=== PATIENT | male | born 1950 | race Caucasian/White ===

== ENCOUNTER 2016-06-26 06:43 | Inpatient (IN) | payer OTHER ==
[2016-06-04 13:26] VITALS: BMI 34.0
--- NOTE | 2016-06-04 13:50 | PAT Medication Instructions ---
Service Date Jun 04, 2016. Current Home Medication List Aspirin (Aspirin Ec), 81 MG PO M.W.F Atorvastatin (Lipitor), 10 MG PO QPM Fish Oil (Yolyn-3), 1 CAP PO QAM Hydrocodone/Acetaminophen 5MG/325MG ([place] 5MG/325MG), 1 TABLET PO QID PRN for Pain Sertraline (Zoloft), 100 MG PO QPM Medication Instructions For Your Scheduled Surgery - Hold the following medications 2 weeks prior to surgery: Fish Oil (Yolyn-3), 1 CAP PO QAM - Take the following medications the morning of surgery with a sip of water OTHERWISE NOTHING TO EAT OR DRINK AFTER MIDNIGHT: Aspirin (Aspirin Ec), 81 MG PO M.W.F Hydrocodone/Acetaminophen 5MG/325MG ([place] 5MG/325MG), 1 TABLET PO QID PRN for Pain (may take up to 4 hours prior to surgery if needed) - Take the following medications as scheduled the night before surgery: Sertraline (Zoloft), 100 MG PO QPM Atorvastatin (Lipitor), 10 MG PO QPM If you have any questions please call us at [phone] (Violet Gonsalez PA-C) or [phone] or [phone]
--- NOTE | 2016-06-04 14:14 | DIAGNOSTIC IMAGING REPORT ---
CHEST 2 VIEWS ROUTINE CLINICAL HISTORY: Preoperative evaluation COMPARISON STUDY: No previous studies for comparison. FINDINGS: Lung volumes are normal. There is no consolidation. Pulmonary vascularity is normal. No pneumothorax or pleural effusion is present. There is borderline cardiomegaly. IMPRESSION: 1. No acute cardiopulmonary findings. 2. Borderline cardiomegaly. Electronically signed by: Сергей Ortega M.D. 06/04/2016 2:12 PM
[2016-06-04 15:06] LABS: PROTHROMBIN TIME (PATIENT) 10.2 SECONDS (9.0-12.0)
[2016-06-04 15:07] LABS: URINE APPEARANCE CLEAR (CLEAR); URINE BILIRUBIN NEG (NEG); URINE COLOR YELLOW; URINE NITRITE NEG (NEG); URINE PH 5.5 (4.5-7.5); UROBILINOGEN NEG (NEG); ZZUR CULT IF INDIC CLEAN CATCH NO
[2016-06-04 15:19] LABS: BUN/CREATININE RATIO 8.3 (10-20); CALCIUM 8.8 mg/dl (8.5-10.1); CREATININE 0.78 mg/dl (0.60-1.40); POTASSIUM 3.6 mmol/L (3.5-5.1)
[2016-06-04 15:24] LABS: MANUAL MICROSCOPIC REQUIRED? NO; REVIEW REQ? NO
[2016-06-04 15:35] LABS: BASO % 0.5 %; BASO ABS # 0.03 K/uL (0-0.2); COMPLETE YES; IG% 0.8 %; LYMPH % 21.5 %; LYMPH ABS # 1.31 K/uL (1.2-3.4); MEAN CORPUSCULAR HEMOGLOBIN 33.1 pg (25-34); MEAN CORPUSCULAR HGB CONC 35.6 g/dl (32-36); MEAN PLATELET VOLUME 8.8 fL (7.4-10.4); MONO % 6.6 %; NEUT % 68.6 %; PLATELET COUNT 256 K/uL (130-400); RED BLOOD COUNT 4.41 M/uL (4.7-6.1); WHITE BLOOD COUNT 6.09 K/uL (4.8-10.8)
[2016-06-05 05:55] LABS: ESTIMATED AVERAGE GLUCOSE 105 mg/dl; HA1C FLAG Normal (Normal)
--- NOTE | 2016-06-25 13:47 | HISTORY & PHYSICAL EXAMINATION ---
DATE OF ADMISSION: 06/26/2016 CHIEF COMPLAINT: Chronic right knee pain. HISTORY OF PRESENT ILLNESS: A 66-year-old male, patient of Dr. Amin'sylvia complaining of chronic right knee pain, longstanding, progressively getting worse. The patient has been diagnosed with end-stage osteoarthritis per clinical and radiographic exams. He has failed conservative treatment including anti-inflammatories, intraarticular injections, arthroscopic cleanout as well as the use of a brace and crutches. He has increased pain with weightbearing activities and his pain does interfere with his activities of daily living. PAST MEDICAL HISTORY: Hypercholesterolemia, recent cold, anxiety, osteoarthritis, and obesity. SOCIAL HISTORY: He is half pack per day smoker, social drinker. REVIEW OF SYSTEMS: The patient complains of chronic right knee pain, otherwise denies any shortness of breath, chest pain, nausea, vomiting or joint complaints. FAMILY HISTORY: Noncontributory. PAST SURGICAL HISTORY: Arthroscopic knee surgery on the right. MEDICATIONS: Zoloft 100 mg daily, Lipitor 10 mg daily, fish oil daily, aspirin 81 mg daily, hydrocodone 5/325 as needed daily. ALLERGIES: No known drug allergies. PHYSICAL EXAMINATION: GENERAL: Well-developed, well-nourished 66-year-old male in no acute distress. He is alert and oriented x3 and pleasant. HEAD, EYES, EARS, NOSE, AND THROAT: Normocephalic, atraumatic. Extraocular motions are intact. Pupils are equal and reactive to light. HEART: Regular rate and rhythm, no murmurs. LUNGS: Clear. ABDOMEN: Soft and nontender. Bowel sounds are present. EXTREMITIES: Right knee reveals limited range of motion of 0-125 degrees with a varus deformity. The patient has medial joint line tenderness and mild effusion. He has crepitation with passive range of motion. His ligaments are stable. He has 5/5 strength. Neurologically and neurovascularly he is intact in his right lower extremity. DIAGNOSES: 1. Right knee end-stage osteoarthritis. 2. Hypercholesterolemia. 3. Anxiety 4. Osteoarthritis. 5. Obesity. PLAN: The patient was advised of his diagnosis. Indications, risks, benefits, and postop course have all been reviewed. The patient wishes to proceed with a right total knee arthroplasty. Necessary consent forms, preoperative testing and clearances will be obtained.
[~2016-06-26] VITALS: Ht 177.8 cm; Wt 108.5 kg
[2016-06-26] VITALS (8 sets, daily range): BP systolic 108–133; BP diastolic 69–80; PULSE 59–84; TEMP 36.2–37.1; O2SAT 94–98; Ht 177.8 cm; Wt 108.5 kg
[~2016-06-26 06:43] MED LIST: ACETAMINOPHEN 500 MG TAB PO SCH; ASPI81TA28 PO; ATOR10TA88 PO; BUPIVACAINE 0.5 % 5 MG/1 ML PF 10ML VIAL ONE; CEFAZOLIN 2000 MG/60 ML D5W 60 ML IV SCH; CeleBREX 200 MG CAP PO SCH; DEXAMETHASONE 4 MG TAB PO SCH; FAMOTIDINE 20 MG TAB PO SCH; GABAPENTIN 300 MG CAP PO SCH; HYDR-5688 PO; LACTATED RINGER'S 1000ML 1,000 ML IV SCH; LACTATED RINGER'S 1000ML 500 ML IV ONE; LACTATED RINGER'S 1000ML IV SCH; METOCLOPRAMIDE HCL 10 MG TAB PO SCH; OMEG10007 PO; ROPIVACAINE 5MG/ML 30 ML 150 MG, BUPIVACAINE/EPINEPHR 0.5% MPF 30 ML, KETOROLAC TROMETH... INFIL SCH; SERT-234 PO
[2016-06-26] MEDS ORDERED: ORTHO JOINT ANESTHETIC ONE (06:54)
--- NOTE | 2016-06-26 07:11 | History & Physical Bridge Note ---
H&P Re-Evaluation Bridge Note: I have examined the patient, reviewed the History & Physical and in the interval since the performance of the History & Physical I have noted the following changes of clinical significance: No changes noted
[2016-06-26] MEDS ORDERED: MIDAZOLAM HCL 1 MG/ML 2ML VIAL ONE (07:12)
[2016-06-26] MEDS ORDERED: FENTANYL CITRATE INJ 50 MCG/1 ML 2 ML VIAL ONE (07:12)
[2016-06-26] MEDS: TRANEXAMIC ACID INJ 1,000 MG in SODIUM CHLORIDE 0.9% 100ML 100 ML IV SCH ×2 (07:51→13:29)
[2016-06-26] MEDS ORDERED: PROPOFOL IV EMULSION 10 MG/ML 20 ML VIAL IV ONE ×4 (08:51→10:24)
[2016-06-26] MEDS ORDERED: PHENYLEPHRINE 100MCG/ML 5ML SYR ONE (09:07)
[2016-06-26] MEDS ORDERED: EpHEDrine SULFATE INJ 50 MG/ML AMP ONE (09:16)
[2016-06-26] MEDS ORDERED: ATROPINE SULFATE 0.1 MG/ML 5ML SYR IV PRN (09:30)
[2016-06-26] MEDS ORDERED: ONDANSETRON INJ 2 MG/ML 2 ML VIAL IV PRN ×2 (09:30→11:00)
[2016-06-26] MEDS ORDERED: FENTANYL CITRATE INJ 50 MCG/1 ML 2 ML VIAL IV PRN (09:30)
[2016-06-26] MEDS ORDERED: EpHEDrine SULFATE INJ 50 MG/ML AMP IV PRN (09:30)
--- NOTE | 2016-06-26 10:29 | [facility] Operative Report ---
Operative Report Operative Date Jun 26, 2016. Pre-Operative Diagnosis Right Knee, Degenerative Joint Disease,avn mfc Post-Operative Diagnosis same Procedure(s) Performed right tka,lat release Surgeon Dr. Bj Amin Cap Jewel Plate Assembler Surgeon(s) Moise Keyes PA-C Estimated Blood Loss 5ml Findings tricompartmental djd varus grade 4 tricompartmental Specimens A.) Right Knee Bone and Tissue Fragments Drains 2 HV Anesthesia [facility] Disposition Recovery Room / PACU Indications end stage djd avn collapse [facility] I attest to the content of the Intraoperative Record and any orders documented therein. Any exceptions are noted below.
[2016-06-26] MEDS ORDERED: BACITRACIN 50000 UNIT VIAL IR ONE (10:32)
[2016-06-26] MEDS ORDERED: POVIDONE-IODINE OP SOLN 30 ML BTL TOP ONE (10:32)
[2016-06-26] MEDS ORDERED: MAGNESIUM HYDROXIDE SUSP 30 ML UDC PO PRN (11:00)
[2016-06-26] MEDS ORDERED: MoRPHine SULFATE 2 MG/ML CARP IV PRN (11:00)
[2016-06-26] MEDS ORDERED: ZOLPIDEM TARTRATE 5 MG TAB PO PRN (11:00)
[2016-06-26] MEDS ORDERED: DiphenhydrAMINE HCL 50 MG/ML VIAL IV PRN (11:00)
[2016-06-26] MEDS ORDERED: BISACODYL 10 MG SUPP PR PRN (11:00)
[2016-06-26] MEDS ORDERED: ALUMINUM/MAGNESIUM/SIMETH (MAALOX MAX) 30 ML UDC PO PRN (11:00)
--- NOTE | 2016-06-26 11:30 | DIAGNOSTIC IMAGING REPORT ---
RIGHT KNEE 1 OR 2 VIEWS ROUTINE CLINICAL HISTORY: Postoperative evaluation COMPARISON: Right knee fluoroscopic images September 27, 2015 FINDINGS: Alignment of the right knee arthroplasty is anatomic. There is no fracture or unexpected radiopaque foreign body. Drains and skin tanisha are present. IMPRESSION: Expected findings following total right knee arthroplasty. Electronically signed by: Сергей Ortega M.D. 06/26/2016 11:28 AM Dictated Date/Time: 06/26/2016 11:26 AM
--- NOTE | 2016-06-26 12:06 | Anesthesiology Progress Note ---
Anesthesia Post Op Note Date & Time Jun 26, 2016 at 12:06 Vital Signs Pain Intensity: 0 Vital Signs Past 12 Hours Date Time Temp Pulse Resp B/P Pulse Ox O2 Delivery O2 Flow Rate FiO2 06/26/16 11:45 36.3 57 17 104/66 98 Nasal Cannula 2 06/26/16 11:14 60 19 98 06/26/16 11:14 62 19 06/26/16 11:13 103/70 06/26/16 11:09 60 20 97 06/26/16 11:09 61 20 06/26/16 11:08 110/68 06/26/16 11:04 62 17 98 06/26/16 11:04 61 17 06/26/16 11:03 103/75 06/26/16 10:59 62 12 100 06/26/16 10:59 62 12 06/26/16 10:58 110/68 06/26/16 10:54 71 16 98 06/26/16 10:54 71 16 06/26/16 10:54 36.3 66 18 103/65 94 Room Air 06/26/16 07:34 36.2 84 20 133/80 94 Room Air Notes Mental Status: alert / awake / arousable, participated in evaluation Pt Amnestic to Procedure: Yes Nausea / Vomiting: adequately controlled Pain: adequately controlled Airway Patency, RR, SpO2: stable & adequate BP & HR: stable & adequate Hydration State: stable & adequate Neuraxial Anesthesia: was administered, sensory block is resolving Anesthetic Complications: no major complications apparent
[2016-06-26] MEDS: D5W AND 1/2NSS + 20MEQ KCL 1,000 ML IV SCH ×2 (13:47→23:00)
[2016-06-26] MEDS ORDERED: NURSING VERBAL MED ORDER ONE (15:45)
--- NOTE | 2016-06-26 16:08 | Medical Consult ---
Consultation Date of Consultation: Jun 26, 2016. Attending Physician: Bj Amin M.D. Reason for Consultation: Medical management History of Present Illness Patient is a pleasant 66 y/o male, with PMHx of hyperlipidemia, osteoarthritis, and anxiety, s/p right TKA by Dr. Amin on 06/26. Per family, everything went well with surgery, without any complications. Currently pain is controlled at a 0/10. Denies any passing gas or BM postop. Tolerated lunch well. Patient denies any fever, chills, sweats, lightheadedness, dizziness, vision changes, CP, palpitations, edema, SOB, wheezing, cough, abdominal pain, nausea, vomiting, diarrhea, urinary symptoms, melena, numbness/tingling, weakness, muscle/joint pain, anxiety/depression, active bleeding, or new skin discoloration/changes. Past Medical/Surgical History 1. Hyperlipidemia 2. Anxiety 3. Tobacco abuse 4. Osteoarthritis Social History Smoking Status: Current Every Day Smoker (~1/2 pack per day) Smokeless Tobacco Use: Yes Marital Status: Housing Status: lives with family Allergies Coded Allergies: No Known Allergies (Unverified , 06/04/16) Home Medications Reported Home Medications Medications Dose Route/Sig Max Daily Dose Days Date Category Dose Instructions [place] 5MG/325MG (Acetaminophen/Hydrocodone Bitart) Tab 1 Tablet PO QID PRN 06/04/16 Reported PRN PAIN Aspirin Ec (Aspirin) 81 Mg Tab 81 Mg PO M.W.F 09/25/15 Reported [place]-3 (Fish Oil) 1 Ea Cap 1 Cap PO QAM 09/25/15 Reported Zoloft (Sertraline HCl) 100 Mg Tab 100 Mg PO QPM 09/25/15 Reported Lipitor (Atorvastatin Calcium) 10 Mg Tab 10 Mg PO QPM 09/25/15 Reported Current Inpatient Medications Current Inpatient Medications Medications (Trade) Dose Ordered Sig/Carlos Route Start Time Stop Time Status Last Admin Dose Admin Lactated Ringer's 1,000 ml @ 15 mls/hr Q24H IV 06/26/16 06:00 06/27/16 05:59 06/26/16 07:49 15 MLS/HR Lactated Ringer's 1,000 ml @ 60 mls/hr [id number] IV 06/26/16 06:00 06/26/16 22:39 06/26/16 07:49 60 MLS/HR Cefazolin Sodium (Ancef 2000mg/60 ml D5W) 60 ml @ 100 mls/hr PREOP IV 06/26/16 06:00 06/26/16 18:00 06/26/16 08:37 100 MLS/HR Acetaminophen (Tylenol Tab) 1,000 mg PREOP PO 06/26/16 06:00 06/26/16 18:00 06/26/16 07:51 1,000 MG Celecoxib (CeleBREX CAP) 200 mg PREOP PO 06/26/16 06:00 06/26/16 18:00 06/26/16 07:52 200 MG Dexamethasone (Decadron Tab) 8 mg PREOP PO 06/26/16 06:00 06/26/16 18:00 06/26/16 07:50 8 MG Famotidine (Pepcid Tab) 20 mg PREOP PO 06/26/16 06:00 06/26/16 18:00 06/26/16 07:50 20 MG Gabapentin (Neurontin Cap) 300 mg PREOP PO 06/26/16 06:00 06/26/16 18:00 06/26/16 07:50 300 MG Metoclopramide HCl 10 mg 10 mg PREOP PO 06/26/16 06:00 06/26/16 18:00 06/26/16 07:51 10 MG Tranexamic Acid/ Sodium Chloride (Cyklokapron Inj/ Nss 100ml) 110 ml @ 660 mls/hr TODAY@06,0630 IV 06/26/16 06:00 06/26/16 18:00 06/26/16 07:51 660 MLS/HR Atorvastatin Calcium (Lipitor Tab) 10 mg QPM PO 06/26/16 21:00 07/26/16 20:59 Sertraline HCl (Zoloft Tab) 100 mg QPM PO 06/26/16 21:00 07/26/16 20:59 Morphine Sulfate PAIN SCALE 0-3 2MG ... Q4HWA PRN IV 06/26/16 11:00 07/10/16 10:59 Potassium Chloride/Dextrose/ Sod Cl 1,000 ml @ 100 mls/hr Q10H IV 06/26/16 14:00 06/27/16 10:54 06/26/16 13:47 100 MLS/HR Cefazolin Sodium/ Dextrose (Ancef Iv/D5 50ml) 60 ml @ 100 mls/hr Q8H IV 06/26/16 16:00 06/27/16 00:35 Ketorolac Tromethamine (Toradol Inj) 15 mg Q6H IV. 06/26/16 18:00 06/27/16 17:59 Oxycodone HCl (Roxicodone Immediate Rel Tab) 1 TABLET FOR PAIN RATING... Q4H PRN PO 06/26/16 11:00 07/10/16 10:59 Oxycodone HCl (Oxycontin Tab) 10 mg Q12 PO 06/26/16 21:00 07/10/16 20:59 Acetaminophen (Tylenol Tab) 1,000 mg Q8H PO 06/26/16 22:00 07/26/16 21:59 Magnesium Hydroxide (Milk Of Magnesia Susp) 30 ml Q6H PRN PO 06/26/16 11:00 07/26/16 10:59 Bisacodyl (Dulcolax Supp) 10 mg DAILY PRN [place] 06/26/16 11:00 07/26/16 10:59 Senna (Senokot Tab) 17.2 mg HS PO 06/26/16 21:00 07/26/16 20:59 Docusate Sodium (coLACE CAP) 100 mg BID PO 06/26/16 21:00 07/26/16 20:59 Diphenhydramine HCl (Benadryl Inj) 25 mg Q8H PRN IV 06/26/16 11:00 07/26/16 10:59 Al Hydrox/Mg Hydrox/Simethicone (Maalox Max Susp) 15 ml Q4H PRN PO 06/26/16 11:00 07/26/16 10:59 Zolpidem Tartrate (Ambien Tab) 5 mg HSZ PRN PO 06/26/16 11:00 07/26/16 10:59 Multivitamins (Multivitamin Tab) 1 tab QAM PO 06/27/16 09:00 07/27/16 08:59 Ondansetron HCl (Zofran Inj) 4 mg Q6H PRN IV 06/26/16 11:00 07/26/16 10:59 Ferrous Gluconate (Ferrous Gluconate Tab) 324 mg TIDM PO 06/26/16 17:45 07/26/16 17:44 Pantoprazole Sodium (Protonix Tab) 40 mg QAM PO 06/27/16 09:00 07/27/16 08:59 Aspirin (Ecotrin Tab) 81 mg BID PO 06/26/16 21:00 07/26/16 20:59 Influenza Virus Vaccine Quadrival (Flu Vaccine) 0.5 ml ONCE ONCE IM. 06/26/16 20:00 06/26/16 20:01 Miscellaneous Information (Nursing Verbal Med Order) 1 ea ONE ONCE N/A 06/26/16 15:45 06/26/16 15:46 UNV Physical Exam Date Time Temp Pulse Resp B/P Pulse Ox O2 Delivery O2 Flow Rate FiO2 06/26/16 15:39 37.1 70 18 116/74 98 Nasal Cannula 2.0 06/26/16 15:15 Nasal Cannula 2.0 06/26/16 14:37 78 14 112/72 94 Nasal Cannula 2.0 06/26/16 13:40 61 16 123/78 96 Nasal Cannula 2.0 06/26/16 13:10 61 16 114/71 96 Nasal Cannula 2.0 06/26/16 12:40 Nasal Cannula 2.0 06/26/16 12:40 36.7 59 16 108/69 96 Nasal Cannula 2.0 06/26/16 12:40 Nasal Cannula 2.0 06/26/16 12:23 106/63 06/26/16 12:21 112/65 06/26/16 12:20 61 21 98 06/26/16 12:20 61 21 06/26/16 12:15 59 15 97 06/26/16 12:15 61 15 06/26/16 12:13 112/66 06/26/16 12:10 60 16 98 06/26/16 12:10 60 16 06/26/16 12:08 111/69 06/26/16 12:05 60 22 98 06/26/16 12:05 60 22 06/26/16 12:03 111/68 06/26/16 12:00 58 14 97 06/26/16 12:00 58 14 06/26/16 11:58 111/69 06/26/16 11:55 59 18 06/26/16 11:55 58 18 98 06/26/16 11:50 60 22 06/26/16 11:50 60 22 98 06/26/16 11:48 104/66 06/26/16 11:45 59 16 98 06/26/16 11:45 36.3 57 17 104/66 98 Nasal Cannula 2 06/26/16 11:45 59 16 06/26/16 11:43 111/70 06/26/16 11:40 60 16 98 06/26/16 11:40 60 16 06/26/16 11:39 97/63 06/26/16 11:35 59 22 06/26/16 11:35 57 22 99 06/26/16 11:34 110/69 06/26/16 11:30 56 12 06/26/16 11:30 55 12 98 06/26/16 11:28 111/70 06/26/16 11:25 60 16 98 06/26/16 11:25 63 16 06/26/16 11:23 95/59 06/26/16 11:20 63 15 06/26/16 11:20 55 15 97 06/26/16 11:18 100/69 06/26/16 11:15 71 18 06/26/16 11:15 69 18 99 06/26/16 11:14 60 19 98 06/26/16 11:14 62 19 06/26/16 11:13 103/70 06/26/16 11:09 60 20 97 06/26/16 11:09 61 20 06/26/16 11:08 110/68 06/26/16 11:04 62 17 98 06/26/16 11:04 61 17 06/26/16 11:03 103/75 06/26/16 10:59 62 12 100 06/26/16 10:59 62 12 06/26/16 10:58 110/68 06/26/16 10:54 71 16 98 06/26/16 10:54 71 16 06/26/16 10:54 36.3 66 18 103/65 94 Room Air 06/26/16 07:34 36.2 84 20 133/80 94 Room Air General Appearance: no apparent distress, + obese Head: normocephalic, atraumatic Eyes: normal inspection, PERRL ENT: hearing grossly normal Neck: supple Respiratory/Chest: lungs clear, normal breath sounds, no respiratory distress, no accessory muscle use Cardiovascular: regular rate, rhythm, normal peripheral pulses Abdomen/GI: normal bowel sounds, non tender, soft Back: normal inspection Extremities/Musculoskelatal: no calf tenderness, no pedal edema, + pertinent finding (TEDs on ) Neurologic/Psych: alert, normal mood/affect, oriented x 3 Skin: normal color, warm/dry, no rash Laboratory Results Last 24 Hours Test 06/26/16 06:56 Hepatitis C Antibody Screen NEG Assessment & Plan 66 y/o male, with PMHx of hyperlipidemia, osteoarthritis, and anxiety, s/p right TKA by Dr. Amin on 06/26 - Pain management, DVT prophylaxis, and PT/OT as per primary team - Follow CBC and PRP Hyperlipidemia: - Continue Lipitor 10 mg PO QPM Anxiety: - Continue Zoloft 100 mg PO QPM Tobacco Abuse: - Smoke ~1/2 pack per day - Chews tobacco occasionally - Nicotine patch GI Prophylaxis: - Pantoprazole 40 mg - Maalox PRN - IV Zofran PRN - Colace and/or Milk of Mag PRN DVT prophylaxis: - As per primary team Dispo: - Discharge as per primary team. Thank you for this consultation. We will continue to follow throughout hospital stay.
[2016-06-26] MEDS: CEFAZOLIN IV 2,000 MG in DEXTROSE 5% 50ML 50 ML IV SCH ×2 (16:38→22:59)
[2016-06-26] MEDS: NICOTINE 21 MG/24 HR TDSY EXT SCH (16:39)
[2016-06-26] MEDS: OXYCODONE HCL IR 5 MG TAB (IMMEDIATE RELEASE) PO PRN (16:44)
[2016-06-26] MEDS: FERROUS GLUCONATE 324 MG TAB PO SCH (18:14)
[2016-06-26] MEDS: KETOROLAC TROMETHAMINE 15 MG/ML VIAL IV. SCH ×2 (18:14→23:00)
[2016-06-26] MEDS ORDERED: INFLUENZA ADMINISTRATION CHARGE ONE (20:00)
[2016-06-26] MEDS ORDERED: INFLUENZA VIRUS QUAD VACCINE 0.5 ML SYR IM. ONE (20:00)
[2016-06-26] MEDS: OXYCODONE HCL 10 MG TABCR (OXYCONTIN) PO SCH (20:28)
[2016-06-26] MEDS: ASPIRIN 81 MG ECTAB PO SCH (20:29)
[2016-06-26] MEDS: SENNA 8.6 MG TAB PO SCH (20:29)
[2016-06-26] MEDS: SERTRALINE HCL 100 MG TAB PO SCH (20:30)
[2016-06-26] MEDS: DOCUSATE SODIUM 100 MG CAP PO SCH (20:30)
[2016-06-26] MEDS: ATORVASTATIN 10 MG TAB PO SCH (20:31)
[2016-06-26] MEDS: ACETAMINOPHEN 500 MG TAB PO SCH (21:31)
--- NOTE | 2016-06-26 23:17 | OPERATIVE REPORT ---
DATE OF OPERATION: 06/26/2016 INDICATION FOR PROCEDURE: The patient is a 66-year-old male with chronic right knee osteoarthritis. He had progressive osteoarthritis in the knee, had an insufficiency fracture of the medial femoral condyle which went on to collapse despite treatment for it. Now, he has significant varus knee [id number] with some instability, the femur with subluxation on the tibia. PREOPERATIVE DIAGNOSIS: Right knee severe end-stage osteoarthritis with either avascular necrosis or insufficiency fracture with collapse of medial femoral condyle. POSTOPERATIVE DIAGNOSIS: Same with tricompartmental degenerative joint disease. PROCEDURE: Right total knee arthroplasty. SURGEON: Dr. Amin. TROUBLE LOCATOR TEST DESK: KELSEY Charles. ANESTHESIA: Spinal sedation, regional block and Orthomix. OPERATIVE PROCEDURE: The patient taken to the operating room, anesthetized under anesthesia as dictated. Pneumatic tourniquet was placed about his right upper thigh. Right lower extremity was prepped and draped in sterile fashion. ChloraPrep was used. Leg was elevated, exsanguinated with Esmarch bandage, pneumatic tourniquet was raised to 300 mmHg. Knee exam demonstrated a varus knee, some moderate pseudolaxity. No particular instability, still had reasonably good range of motion. After the leg was sterilely prepped and draped with ChloraPrep and the tourniquet raised, anterior longitudinal incision was made across the right knee. Skin was incised sharply. Subcutaneous flaps were elevated. He did have very thick prepatellar bursa noted. This was reflected off the fascia. Incision was made into the medial retinaculum, extended up into the mid third of the quadriceps tendon and extended down to tibial tubercle. Intraarticular findings demonstrated that he had completely exposed bone on the medial femoral condyle, had some collapse and flattening of the medial femoral condyle. I completely exposed eburnated bone on the tibial plateau noted. Medial facet of patella was exposed, bone medial facet area only, and the lateral femoral condyle due to subluxation had wear along the medial aspect of the lateral femoral condyle, grade 4 DJD there. I used the Sanchez \T\ Nephew Journey 2.0 total knee arthroplasty system using [employer] MRI templating, sizing the femur for 7, tibia for 6. Knee exposure required infrapatellar fat pad resection, fat pad over the anterior femur resection, lateral synovial bands released. The menisci remnants were resected. The cruciate ligaments were resected. Because of his very tight medial knee, we had to do releases subperiosteally around the medial and posterior medial tibial plateau. With the femur exposed, the custom femoral cutting block was pinned in position and distal femoral cut was made. Then, the 5-in-1 cutting block was placed. The anterior, posterior and chamfer cuts were made. These were made for the size 7 femur. Then, the knee was extended and subperiosteal peel lateral release was performed around the patella. The patella width was measured and width was reproduced with freehand cut technique and a 38 mm patellar component. Drill holes were made and the excess lateral facet was beveled off to prevent any impingement. The tibia was then subluxed. We felt that the custom tibial cutting guide would not work sufficiently, so we used an external tibial cutting guide to make a perpendicular cut to long axis of the tibia matching the posterior slope. I adjusted this appropriately, pinned it in position, made a proximal tibial cut with the oscillating saw. Then, I used a lamina kit planner and all posterior osteophytes were resected. I felt the ligaments were reasonably balanced at this time and then went ahead and subluxed the tibia, placed on the 6 tibial trial, externally rotated in line with the tibial tubercle, pinned in position, and then the punch for the stem was used. Then, the 7 femoral trial was inserted, centered, impacted into position. The notch cutting devices were used, a collet was placed, and 15 poly insert gave balanced ligaments through full range of motion and the patella tracked centrally. The trials were then removed. Then, the anesthetic Orthomix cocktail was injected per protocol. The knee was copiously irrigated with pulsatile lavage antibiotic solution and bacitracin. The final components were cemented was Simplex G cement. The final components were the 7 Oxinium posterior stabilized Sanchez \T\ Nephew Journey 2.0 femur, the 6 tibial baseplate, 15 polyethylene insert posterior stabilized component was used and the 38 patella. While the cement cured, we used the Betadine soak per protocol. The knee was then copiously irrigated with antibiotic solution and bacitracin. Quadriceps tendon and medial retinaculum were closed with interrupted [id number] #1 Vicryl sutures. The knee was taken through full range of motion and the patella tracked centrally and the repair was secure. The subcutaneous tissues were then closed with interrupted 2-0 Polysorb. Skin closed with tanisha. Occlusive dressing was placed. The patient tolerated the procedure well. KELSEY Charles, was my cafe assistant. He functioned as cafe assistant throughout the entire procedure. He assisted in patient positioning, prepping and draping, assisted in leg positioning, soft tissue retraction, instrument management, and performed the fascial, subcutaneous and skin closure, and will participate in postop care of the patient. I attest to the content of the Intraoperative Record and any orders documented therein. Any exceptio ns are noted below.
[2016-06-27] MEDS: OXYCODONE HCL IR 5 MG TAB (IMMEDIATE RELEASE) PO PRN ×5 (02:02→20:42)
[2016-06-27 03:11] VITALS: BP 105/61; PULSE 66; TEMP 37; O2SAT 94
[2016-06-27] MEDS: ACETAMINOPHEN 500 MG TAB PO SCH ×3 (05:20→21:45)
[2016-06-27] MEDS: KETOROLAC TROMETHAMINE 15 MG/ML VIAL IV. SCH ×2 (05:21→12:20)
[2016-06-27 06:04] LABS: HEMATOCRIT 32.7 % (42-52); MEAN CELL VOLUME 91.9 fL (80-100); MEAN CORPUSCULAR HEMOGLOBIN 32.3 pg (25-34); MEAN CORPUSCULAR HGB CONC 35.2 g/dl (32-36); MEAN PLATELET VOLUME 8.9 fL (7.4-10.4); PLATELET COUNT 193 K/uL (130-400); RED BLOOD COUNT 3.56 M/uL (4.7-6.1); WHITE BLOOD COUNT 8.55 K/uL (4.8-10.8)
[2016-06-27 06:27] LABS: BUN/CREATININE RATIO 10.4 (10-20); CALCIUM 8.3 mg/dl (8.5-10.1); CREATININE 0.92 mg/dl (0.60-1.40)
--- NOTE | 2016-06-27 06:54 | Progress Note ---
Subjective Date of Service: Jun 27, 2016. Subjective this pt is doing well but is concerned about hemovac drainage from right knee Review of Systems Constitutional: No chills, No fever, No weakness Respiratory: No cough, No shortness of breath, No sputum Cardiac: No chest pain, No edema, No orthopnea Abdomen: No diarrhea, No nausea, No pain, No vomiting Musculoskeletal: + joint pain, + muscle pain Objective Vital Signs Date Time Temp Pulse Resp B/P Pulse Ox O2 Delivery O2 Flow Rate FiO2 06/27/16 03:11 37.0 66 16 105/61 94 Room Air 06/26/16 23:40 Room Air 06/26/16 23:09 37.0 67 16 116/75 95 Room Air 06/26/16 19:26 37.0 78 18 118/79 95 Room Air 06/26/16 15:39 37.1 70 18 116/74 98 Nasal Cannula 2.0 06/26/16 15:15 Nasal Cannula 2.0 06/26/16 14:37 78 14 112/72 94 Nasal Cannula 2.0 06/26/16 13:40 61 16 123/78 96 Nasal Cannula 2.0 06/26/16 13:10 61 16 114/71 96 Nasal Cannula 2.0 06/26/16 12:40 Nasal Cannula 2.0 06/26/16 12:40 36.7 59 16 108/69 96 Nasal Cannula 2.0 06/26/16 12:40 Nasal Cannula 2.0 06/26/16 12:23 106/63 06/26/16 12:21 112/65 06/26/16 12:20 61 21 98 06/26/16 12:20 61 21 06/26/16 12:15 59 15 97 06/26/16 12:15 61 15 06/26/16 12:13 112/66 06/26/16 12:10 60 16 98 06/26/16 12:10 60 16 06/26/16 12:08 111/69 06/26/16 12:05 60 22 98 06/26/16 12:05 60 22 06/26/16 12:03 111/68 06/26/16 12:00 58 14 97 06/26/16 12:00 58 14 06/26/16 11:58 111/69 06/26/16 11:55 59 18 06/26/16 11:55 58 18 98 1/25/17 11:50 60 22 06/26/16 11:50 60 22 98 06/26/16 11:48 104/66 06/26/16 11:45 59 16 98 06/26/16 11:45 36.3 57 17 104/66 98 Nasal Cannula 2 06/26/16 11:45 59 16 06/26/16 11:43 111/70 06/26/16 11:40 60 16 98 06/26/16 11:40 60 16 06/26/16 11:39 97/63 06/26/16 11:35 59 22 06/26/16 11:35 57 22 99 06/26/16 11:34 110/69 06/26/16 11:30 56 12 06/26/16 11:30 55 12 98 06/26/16 11:28 111/70 06/26/16 11:25 60 16 98 06/26/16 11:25 63 16 06/26/16 11:23 95/59 06/26/16 11:20 63 15 06/26/16 11:20 55 15 97 06/26/16 11:18 100/69 06/26/16 11:15 71 18 06/26/16 11:15 69 18 99 06/26/16 11:14 60 19 98 06/26/16 11:14 62 19 06/26/16 11:13 103/70 06/26/16 11:09 60 20 97 06/26/16 11:09 61 20 06/26/16 11:08 110/68 06/26/16 11:04 62 17 98 06/26/16 11:04 61 17 06/26/16 11:03 103/75 06/26/16 10:59 62 12 100 06/26/16 10:59 62 12 06/26/16 10:58 110/68 06/26/16 10:54 71 16 98 06/26/16 10:54 71 16 06/26/16 10:54 36.3 66 18 103/65 94 Room Air 06/26/16 07:34 36.2 84 20 133/80 94 Room Air Physical Exam General Appearance: WD/WN, + mild distress Neck: supple, thyroid normal Respiratory/Chest: chest non-tender, lungs clear, normal breath sounds Cardiovascular: regular rate, rhythm, no murmur Abdomen: normal bowel sounds, non tender, soft Extremities: no pedal edema, no calf tenderness Laboratory Results Last 24 Hours Test 06/26/16 06:56 06/27/16 05:20 Hepatitis C Antibody Screen NEG White Blood Count 8.55 K/uL Red Blood Count 3.56 M/uL Hemoglobin 11.5 g/dL Hematocrit 32.7 % Mean Corpuscular Volume 91.9 fL Mean Corpuscular Hemoglobin 32.3 pg Mean Corpuscular Hemoglobin Concent 35.2 g/dl RDW Standard Deviation 41.4 fL RDW Coefficient of Variation 12.1 % Platelet Count 193 K/uL Mean Platelet Volume 8.9 fL Sodium Level 137 mmol/L Potassium Level 4.0 mmol/L Chloride Level 105 mmol/L Carbon Dioxide Level 25 mmol/L Anion Gap 7.0 mmol/L Blood Urea Nitrogen 10 mg/dl Creatinine 0.92 mg/dl Est Creatinine Clear Calc Drug Dose 94.8 ml/min Estimated GFR () 98.7 Estimated GFR (Non- 85.2 BUN/Creatinine Ratio 10.4 Random Glucose 113 mg/dl Calcium Level 8.3 mg/dl Assessment and Plan 66 y/o male, with PMHx of hyperlipidemia, osteoarthritis, and anxiety, s/p right TKA by Dr. Amin on 06/26 Hyperlipidemia: Lipitor 10 mg PO QPM Anxiety: Zoloft 100 mg PO QPM Tobacco Abuse- Nicotine patch GI Prophylaxis:- Pantoprazole 40 mg DVT prophylaxis:aspirin 81 mg bid
[2016-06-27 07:06] VITALS: BP 113/63; PULSE 62; TEMP 36.8; O2SAT 94
--- NOTE | 2016-06-27 08:03 | Orthopedic Progress Note ---
Orthopedic Progress Note Date of Service Jun 27, 2016. Subjective Post OP Day: 1 Reports: feeling well, pain controlled w PO medications, Denies: SOB, calf pain , chest pain, complaints, light headedness, nausea / vomiting Objective calves soft nontender, N/V intact, capillary refill less than 2 sec., dressing C /D/I, A&O x3, toes mobile Date Time Temp Pulse Resp B/P Pulse Ox O2 Delivery O2 Flow Rate FiO2 06/27/16 07:06 36.8 62 16 113/63 94 Room Air 06/27/16 03:11 37.0 66 16 105/61 94 Room Air 06/26/16 23:40 Room Air 06/26/16 23:09 37.0 67 16 116/75 95 Room Air 06/26/16 19:26 37.0 78 18 118/79 95 Room Air 06/26/16 15:39 37.1 70 18 116/74 98 Nasal Cannula 2.0 06/26/16 15:15 Nasal Cannula 2.0 06/26/16 14:37 78 14 112/72 94 Nasal Cannula 2.0 06/26/16 13:40 61 16 123/78 96 Nasal Cannula 2.0 06/26/16 13:10 61 16 114/71 96 Nasal Cannula 2.0 06/26/16 12:40 Nasal Cannula 2.0 06/26/16 12:40 36.7 59 16 108/69 96 Nasal Cannula 2.0 06/26/16 12:40 Nasal Cannula 2.0 06/26/16 12:23 106/63 06/26/16 12:21 112/65 06/26/16 12:20 61 21 98 06/26/16 12:20 61 21 06/26/16 12:15 59 15 97 06/26/16 12:15 61 15 06/26/16 12:13 112/66 06/26/16 12:10 60 16 98 06/26/16 12:10 60 16 06/26/16 12:08 111/69 06/26/16 12:05 60 22 98 06/26/16 12:05 60 22 06/26/16 12:03 111/68 06/26/16 12:00 58 14 97 06/26/16 12:00 58 14 06/26/16 11:58 111/69 06/26/16 11:55 59 18 1/25/17 11:55 58 18 98 06/26/16 11:50 60 22 06/26/16 11:50 60 22 98 06/26/16 11:48 104/66 06/26/16 11:45 59 16 98 06/26/16 11:45 36.3 57 17 104/66 98 Nasal Cannula 2 06/26/16 11:45 59 16 06/26/16 11:43 111/70 06/26/16 11:40 60 16 98 06/26/16 11:40 60 16 06/26/16 11:39 97/63 06/26/16 11:35 59 22 06/26/16 11:35 57 22 99 06/26/16 11:34 110/69 06/26/16 11:30 56 12 06/26/16 11:30 55 12 98 06/26/16 11:28 111/70 06/26/16 11:25 60 16 98 06/26/16 11:25 63 16 06/26/16 11:23 95/59 06/26/16 11:20 63 15 06/26/16 11:20 55 15 97 06/26/16 11:18 100/69 06/26/16 11:15 71 18 06/26/16 11:15 69 18 99 06/26/16 11:14 60 19 98 06/26/16 11:14 62 19 06/26/16 11:13 103/70 06/26/16 11:09 60 20 97 06/26/16 11:09 61 20 06/26/16 11:08 110/68 06/26/16 11:04 62 17 98 06/26/16 11:04 61 17 06/26/16 11:03 103/75 06/26/16 10:59 62 12 100 06/26/16 10:59 62 12 06/26/16 10:58 110/68 06/26/16 10:54 71 16 98 06/26/16 10:54 71 16 06/26/16 10:54 36.3 66 18 103/65 94 Room Air Laboratory Results 24 Hours: Test 06/27/16 05:20 Hematocrit 32.7 % Hemoglobin 11.5 g/dL Assessment & Plan Assessment: POD #1, Rt TKA Plan: PT/ OT DVT proph- ASA D/C planning- Home w HH As per medicine. Inhouse Planning Pain Management: Toradol, Oxycontin, Morphine, PO Tylenol, Oxy IR DVT Prophylaxis: TEDs, SCDs, ASA Discharge Planning Discharge Planning: home with home health Pain Management: Oxycontin, PO Tylenol, Oxy IR DVT Prophylaxis: TEDs, ASA Therapy: Physical Therapy, Occupational Therapy
[2016-06-27] MEDS: DOCUSATE SODIUM 100 MG CAP PO SCH ×2 (08:19→20:41)
[2016-06-27] MEDS: FERROUS GLUCONATE 324 MG TAB PO SCH ×3 (08:19→18:05)
[2016-06-27] MEDS: PANTOprazole SOD 40 MG TAB PO SCH (08:20)
[2016-06-27] MEDS: ASPIRIN 81 MG ECTAB PO SCH ×2 (08:20→20:40)
[2016-06-27] MEDS: MULTIVITAMIN TAB PO SCH (08:20)
[2016-06-27] MEDS: OXYCODONE HCL 10 MG TABCR (OXYCONTIN) PO SCH ×2 (08:23→20:41)
[2016-06-27] MEDS: D5W AND 1/2NSS + 20MEQ KCL 1,000 ML IV SCH (08:23)
--- NOTE | 2016-06-27 10:26 | Anesthesiology Progress Note ---
Anesthesia Post Op Note Date & Time Jun 27, 2016 at 10:25 Vital Signs Vital Signs Past 12 Hours Date Time Temp Pulse Resp B/P Pulse Ox O2 Delivery O2 Flow Rate FiO2 06/27/16 08:00 Room Air 06/27/16 07:06 36.8 62 16 113/63 94 Room Air 06/27/16 03:11 37.0 66 16 105/61 94 Room Air 06/26/16 23:40 Room Air 06/26/16 23:09 37.0 67 16 116/75 95 Room Air Notes Mental Status: alert / awake / arousable, participated in evaluation Pt Amnestic to Procedure: Yes Nausea / Vomiting: adequately controlled Pain: adequately controlled Airway Patency, RR, SpO2: stable & adequate BP & HR: stable & adequate Hydration State: stable & adequate Anesthetic Complications: no major complications apparent
[2016-06-27 11:11] VITALS: BP 117/73; PULSE 74; TEMP 36.8; O2SAT 96
[2016-06-27 15:34] VITALS: BP 119/77; PULSE 89; TEMP 37; O2SAT 97
[2016-06-27] MEDS: SERTRALINE HCL 100 MG TAB PO SCH (20:40)
[2016-06-27] MEDS: ATORVASTATIN 10 MG TAB PO SCH (20:40)
[2016-06-27] MEDS: SENNA 8.6 MG TAB PO SCH (20:40)
[2016-06-27 23:23] VITALS: BP 108/63; PULSE 88; TEMP 37; O2SAT 95
[2016-06-28] MEDS: OXYCODONE HCL IR 5 MG TAB (IMMEDIATE RELEASE) PO PRN ×3 (00:54→10:42)
[2016-06-28] MEDS: ACETAMINOPHEN 500 MG TAB PO SCH (05:43)
[2016-06-28 06:30] VITALS: BP 113/78; PULSE 83; TEMP 37.1; O2SAT 96
--- NOTE | 2016-06-28 07:20 | Progress Note ---
Subjective Date of Service: Jun 28, 2016. Objective Vital Signs Date Time Temp Pulse Resp B/P Pulse Ox O2 Delivery O2 Flow Rate FiO2 06/28/16 06:30 37.1 83 16 113/78 96 Room Air 06/27/16 23:23 37.0 88 16 108/63 95 Room Air 06/27/16 20:30 Room Air 06/27/16 16:00 Room Air 06/27/16 15:34 37.0 89 16 119/77 97 Room Air 06/27/16 11:11 36.8 74 16 117/73 96 Room Air 06/27/16 11:05 Room Air 06/27/16 08:00 Room Air Assessment and Plan 66 y/o male, with PMHx of hyperlipidemia, osteoarthritis, and anxiety, s/p right TKA by Dr. Amin on 06/26 Hyperlipidemia: Lipitor 10 mg PO QPM Anxiety: Zoloft 100 mg PO QPM Tobacco Abuse- Nicotine patch GI Prophylaxis:- Pantoprazole 40 mg DVT prophylaxis:aspirin 81 mg bid
[2016-06-28] MEDS: ASPIRIN 81 MG ECTAB PO SCH (08:25)
[2016-06-28] MEDS: MULTIVITAMIN TAB PO SCH ×2 (08:25→09:00)
[2016-06-28] MEDS: FERROUS GLUCONATE 324 MG TAB PO SCH ×2 (08:25→08:33)
[2016-06-28] MEDS: PANTOprazole SOD 40 MG TAB PO SCH (08:26)
[2016-06-28] MEDS: OXYCODONE HCL 10 MG TABCR (OXYCONTIN) PO SCH (08:26)
[2016-06-28] MEDS: NICOTINE 21 MG/24 HR TDSY EXT SCH (08:33)
[2016-06-28] MEDS: DOCUSATE SODIUM 100 MG CAP PO SCH (08:33)
[2016-06-28 09:01] VITALS: BP 146/85; PULSE 89
[2016-06-28 09:02] LABS: HEMATOCRIT 31.8 % (42-52); MEAN CELL VOLUME 90.6 fL (80-100); MEAN CORPUSCULAR HEMOGLOBIN 31.9 pg (25-34); MEAN PLATELET VOLUME 8.9 fL (7.4-10.4); PLATELET COUNT 215 K/uL (130-400); RED BLOOD COUNT 3.51 M/uL (4.7-6.1); WHITE BLOOD COUNT 8.23 K/uL (4.8-10.8)
[2016-06-28 09:04] LABS: MEAN CORPUSCULAR HGB CONC 35.2 g/dl (32-36)
--- NOTE | 2016-06-28 09:39 | Orthopedic Progress Note ---
Orthopedic Progress Note Date of Service Jun 28, 2016. Subjective Post OP Day: 2 Reports: feeling well, pain controlled w PO medications, Denies: SOB, calf pain , chest pain, complaints, light headedness, nausea / vomiting Additional Notes: Hgb 11.2, Asymptomatic, BP stable, good output. Objective calves soft nontender, N/V intact, capillary refill less than 2 sec., dressing C /D/I, A&O x3, toes mobile wound vac in tact. Date Time Temp Pulse Resp B/P Pulse Ox O2 Delivery O2 Flow Rate FiO2 06/28/16 07:15 Room Air 06/28/16 06:30 37.1 83 16 113/78 96 Room Air 06/27/16 23:23 37.0 88 16 108/63 95 Room Air 06/27/16 20:30 Room Air 06/27/16 16:00 Room Air 06/27/16 15:34 37.0 89 16 119/77 97 Room Air 06/27/16 11:11 36.8 74 16 117/73 96 Room Air 06/27/16 11:05 Room Air Laboratory Results 24 Hours: Test 06/28/16 08:45 Hematocrit 31.8 % Hemoglobin 11.2 g/dL Assessment & Plan Assessment: POD #2, Rt TKA Plan: PT/ OT DVT proph- ASA D/C planning- Home w HH today As per medicine. Inhouse Planning Pain Management: Toradol, Oxycontin, Morphine, PO Tylenol, Oxy IR DVT Prophylaxis: TEDs, SCDs, ASA Discharge Planning Discharge Planning: home with home health Pain Management: Oxycontin, PO Tylenol, Oxy IR DVT Prophylaxis: TEDs, ASA Therapy: Physical Therapy, Occupational Therapy
[2016-06-28] MEDS ORDERED: ASPEC81 PO (09:45)
[2016-06-28] MEDS ORDERED: ONDA8TAB6 PO (09:45)
[2016-06-28] MEDS ORDERED: ZOLP5TAB PO (09:45)
[2016-06-28] MEDS ORDERED: OXYSR10 PO (09:45)
[2016-06-28] MEDS ORDERED: RXC5 PO (09:45)
[2016-06-28] MEDS ORDERED: ACET-1138 PO (09:45)
--- NOTE | 2016-06-28 09:47 | Discharge Instructions ---
Discharge Instructions Admission Reason for Admission: R Knee Degenerative Joint Disease Discharge Discharge Diagnosis / Problem: Rt TKA Discharge Goals Goal(s): Improve function Activity Recommendations Activity Limitations: as noted below . Instructions / Follow-Up Instructions / Follow-Up CHERRYJOE RECOMMENDATIONS: SELF CARE INSTRUCTIONS AFTER TOTAL KNEE REPLACEMENT A. You may need to continue a physical therapy program after discharge from the hospital. There are several options available to you. Your doctor will assist you in selecting the best one for you. 1. An out-patient facility 2 to 3 times a week for therapy or home therapy. 2. Continue working on all exercises taught to you in the hospital. Your goals should be to increase bending of your knee to 90 degrees and beyond and to fully straighten your knee. B. You may progress at your own pace from walking with a walker or crutches to a cane; then to no assistive devices. C. Make walking a part of your daily routine. Be up as much as comfortable with rest periods throughout the day. Rest with leg elevation is very important. Use the ice wrap frequently for the first 3-4 weeks. D. There are no restrictions on activities. You may ride in a car, shop, participate in surgical dressing maker and all social activities. E. Wear the long elastic stockings (HECTOR hose) 20 hours a day for 2 weeks after surgery. They can be removed several times a day for laundering and for a bath. F. You may shower, no tub baths until cleared by your doctor. SPECIAL CARE INSTRUCTIONS: VERY IMPORTANT TO READ AND REVIEW A. There are a few signs you need to watch for after you are home. Call [facility] if you notice any of the followin. Increased severe knee pain. Some pain is expected especially when you exercise. 2. Increased swelling in your leg or knee; pain or swelling of the calf muscle in either lower leg. 3. Any fluid drainage from the incision. 4. Shortness of breath or chest pain. B. Please call [facility] at if you have any concerns or questions about your operation or recovery. The doctor or his nurse will return your call promptly. C. You must take antibiotics before dental work, bladder, bowel or other surgery. Your doctor will provide you with a permanent care to carry describing this precaution. IMPORTANT: * REMEMBER TO TAKE ASPIRIN, 81 MG, TWICE DAILY FOR 4 WEEKS UNLESS OTHERWISE DIRECTED. THIS IS YOUR BLOOD THINNER. * HIGH RISK PATIENTS MAY BE PRESCRIBED A STRONGER BLOOD THINNER. THIS WILL BE PROVIDED AT DISCHARGE. * CALL IF INCREASED PAIN, REDNESS, DRAINAGE OR FEVER GREATER THAT 101. * WEAR HECTOR HOSE 20 HOURS PER DAY FOR 2 WEEKS. * YOU MAY HAVE A LARGE BAND-AID LIKE DRESSING (SILVERON). THIS WILL REMAIN ON YOUR INCISION FOR 7 DAYS, THEN CAN BE REMOVED. IF INCISION IS LEAKING THROUGH DRESSING, CALL THE OFFICE . FOLLOW UP VISIT: If appointment is not already scheduled: Please call [facility] to make a follow-up appointment for 2 weeks after your surgery at . YOU HAVE A SUPERFICIAL WOUND VAC ON, REMOVE AND DISCARD ALL PARTS 1 WEEK POST OP AND REPLACE WITH DAILY DRESSING CHANGES UNTIL FOLLOW UP IN OFFICE Current Hospital Diet Patient's current hospital diet: Regular Diet Discharge Diet Recommended Diet: Regular Diet Procedures Procedures Performed: Right Total Knee Arthroplasty, Cemented Pending Studies Studies pending at discharge: no Laboratory Results Hemoglobin A1c Test 06/04/16 13:51 Range/Units Estimated Average Glucose 105 mg/dl Hemoglobin A1c 5.3 4.5-5.6 % Medical Emergencies . Who to Call and When: Medical Emergencies: If at any time you feel your situation is an emergency, please call 911 immediately. . Non-Emergent Contact Non-Emergency issues call your: Primary Care Provider . "Provider Documentation" section prepared by Antelmo Guevara. VTE Core Measure Inpt VTE Proph given/why not?: Other Anticoagulation (ASA), T.E.D. Stockings, SCD's
[2016-06-28 10:02] VITALS: BP 113/78; PULSE 83; TEMP 37.1; O2SAT 96
--- NOTE | 2016-07-01 17:02 | DISCHARGE SUMMARY ---
NOTICE TO RECEIVING CONSTITUTION PARTY/AGENCY This information is strictly Confidential and protected under [place] law. [place] law prohibits you from making any further disclosure of this information unless further disclosure is expressly permitted by the written consent of the person to whom it pertains or is authorized by law. A general authorization for the release of medical or other information is not sufficient for this purpose. Hospital accepts no responsibility if the information is made available to any other person, INCLUDING THE PATIENT. DISCHARGE DIAGNOSIS: Degenerative joint disease, right knee. SECONDARY DIAGNOSES: Hypercholesterolemia, anxiety, osteoarthritis, obesity. CONSULTS: Hermelinda Sanchez PA-C/Haroon Nixon D.O. COMPLICATIONS: None. PROCEDURES: Right total knee arthroplasty performed by Dr. Amin on 06/26/2016. BRIEF HISTORY: As dictated in history and physical. HOSPITAL SUMMARY: The patient was admitted on the above date and had the above-noted surgery performed which he tolerated well. On his first postoperative day was feeling well and pain was controlled. He had no complaints. Calves were soft, nontender, neurovascularly intact. Dressings clean, dry and intact. Toes were mobile. Vital signs were stable. He was afebrile. Hemoglobin was 11.5 and he was started on physical therapy protocol and continued on DVT prophylaxis and pain management and medical management. By his second postoperative day, he was feeling well and pain was controlled. Hemoglobin was 11.2. He had no complaints. Calves were soft, nontender. Dressings were clean, dry and intact. Toes were mobile. Prevena wound VAC was intact. Vital signs were stable. He was afebrile. Hemoglobin as noted above. He was progressing well with his physical therapy and remaining medically stable and it was felt that he could be discharged to home on 06/28/2016. For further review, please see chart. LAB AND X-RAY DATA: As per chart. DISCHARGE INSTRUCTIONS: The patient was discharged to home in satisfactory condition on 06/28/2016. DIET: Regular. ACTIVITY: Follow TK instruction sheets and special care instructions as noted. Follow up with Dr. Amin in 2 weeks. The patient to call for appointment if one has not been made for you. DISCHARGE MEDICATIONS: Acetaminophen 1000 mg p.o. q. 8 hours, aspirin 81 mg p.o. b.i.d., Zofran 8 mg p.o. q. 8 hours, OxyContin 10 mg p.o. q. 12 hours, oxycodone 5-10 mg p.o. q. 4 hours p.r.n., Ambien 5 mg p.o. at bedtime p.r.n. Resume taking atorvastatin 10 mg p.o. q.p.m., sertraline 100 mg p.o. q.p.m. Stop taking the older aspirin dosage and resume it once your 30 days b.i.d. dosing has finished. Stop taking fish oil caplets and stop taking [place].
== END 2016-06-28 11:23 | disposition home health service (06) | DRG 470 ==
LOC: ENRESERVDT → ENRESERVTM → C.ACU 06:43 → C.MSW 07:05
PROVIDERS: ADMIT Orthopaedic Surgery Sports Medicine; ATTEND Orthopaedic Surgery Sports Medicine
PROC: 0SRC0J9 Replacement of Right Knee Joint with Synthetic Substitute, Cemented, Open Approach (ICD-10-PCS; principal; 2016-06-26 08:45)
DX: M17.11 Unilateral primary osteoarthritis, right knee (principal); E78.5 Hyperlipidemia, unspecified; F17.200 Nicotine dependence, unspecified, uncomplicated; E78.00 Pure hypercholesterolemia, unspecified; F41.9 Anxiety disorder, unspecified; E66.9 Obesity, unspecified; Z79.82 Long term (current) use of aspirin; Z79.899 Other long term (current) drug therapy

== ENCOUNTER 2020-02-09 06:54 | Observation (INO) ==
--- NOTE | 2020-01-24 11:12 | PAT Medication Instructions ---
Medication Instructions Date of Service January 24, 2020 Home Medications aspirin 81 mg PO 3XWK atorvastatin 10 mg PO HS docosahexaenoic acid-epa [Fish Oil (with DHA-EPA)] 1 cap PO QAM Continue as directed aspirin 81 mg PO 3XWK STOP taking 2 weeks before surgery docosahexaenoic acid-epa [Fish Oil (with DHA-EPA)] 1 cap PO QAM Take evening before surgery atorvastatin 10 mg PO HS OTHERWISE NOTHING TO EAT OR DRINK AFTER MIDNIGHT Other Notes If you have any questions please call us at [phone] or [phone] or [phone] or [phone]
--- NOTE | 2020-01-24 11:55 | Anesthesiology Consultation ---
Date of Service January 24, 2020 Assessment & Plan (1) Encounter for pre-operative examination: Chart Review Chart Review: Pending: Refer to Additional Notes / Consult section (pending ECHO ) and Patient seen in Pre Admission Testing Will continue to attempt to get copies of Jun 2019 ECHO. Per PAT appt on 01/24/20, resides in [facility]. Travels to [facility] for medical appts. Uses PPE. Educated patient to follow up with surgeon's office regarding Covid testing. Educated on importance of self quarantining, social distancing and wearing mask in public both for the patient and household contacts. Teaching & Discussion Pre-Anesthesia Teaching/Discussion Notes: Instructed NPO after midnight before surgery,except medications with 15 cc of water. Medication instructions provided according to the PAT guidelines. History Surgery Operation Date: 02/09/20 11:10 Proposed Procedures p Total Knee Arthroplasty - Bj Amin MD Height/Weight Height: 5 ft 10 in Weight: 106.5 kg Allergies Allergy/AdvReac Type Severity Reaction Status Date / Time No Known Allergies Allergy Unverified 01/24/20 08:47 Medications Home Medications Medication Instructions Recorded Confirmed Last Taken aspirin 81 mg PO 3XWK 01/24/20 01/24/20 Unknown atorvastatin 10 mg PO HS 01/24/20 01/24/20 Unknown docosahexaenoic acid-epa [Fish Oil 1 cap PO QAM 01/24/20 01/24/20 Unknown (with DHA-EPA)] Past Medical History Medical History Cardiac murmur CHRONIC- 06/2019 ECHO DONE AT [facility] Hyperlipidemia Exercise / Class Metabolic Activity III < 4 Walking/Shop/Light housework (one flight of stairs- no chest pain, mild SOB) Past Surgical History Surgical History History of right knee joint replacement Hx of arthroscopic knee surgery Hx of colonoscopy Past Anesthesia History No Hx of Anesthesia Complications and No Family Hx of Anesthesia Complications History of PONV No Hx of PONV and No Hx of Motion Sickness Social History Smoking Status: Former smoker Do You Dip or Chew Tobacco: Yes (OCAS/ ADVISED) Smoking End Date: 2018 Hx Alcohol Use: No Hx Substance Use: No substance use type: does not use Review of Systems Occ snoring- no witnessed apnea- no history of sleep study Patient denies chest pain, shortness of breath, dyspnea on exertion, reflux, cough, wheezing, palpitations. No hx of seizures, stroke, [place]. No hx of blood clots or blood transfusions Physical Exam Vital Signs VITALS BP 116/71 P 54 TEMP 98.4 SP02 96% RESP 16 Constitutional no acute distress ENMT Mouth: no TMJ clicking Thyromental Distance: > or= 3.5 Finger Breadths (4.0) Mallampati Class: I (smaller airway ) [place] on molar Neck neck extension not limited Respiratory normal respiratory effort; no respiratory distress Auscultation: lungs clear to auscultation bilaterally; no wheezes Cardiovascular Rate/Rhythm: regular rate and regular rhythm Heart Sounds: + murmur (III/ systolic murmur ) Vessels: no carotid bruit Musculoskeletal Spine: no pain with cervical ROM Neurologic moves all extremities Psychiatric Orientation: alert Testing Laboratory Results 01/24/20 11:52 01/24/20 11:52 PT 10.4 Seconds (9.0-12.0) 01/24/20 11:52 INR 1.0 (0.9-1.1) 01/24/20 11:52 APTT 25.3 Seconds (21.0-31.0) 01/24/20 11:52 Hemoglobin A1c 5.6 % (4.5-5.6) 01/24/20 11:52 Urine Color Yellow 01/24/20 11:52 Urine Appearance Clear (Clear) 01/24/20 11:52 Urine pH 6.5 (4.5-7.5) 01/24/20 11:52 Ur Specific [place] 1.010 (1.000-1.030) 01/24/20 11:52 Urine Protein Negative (Negative) 01/24/20 11:52 Urine Glucose (UA) Negative (Negative) 01/24/20 11:52 Urine Ketones Negative (Negative) 01/24/20 11:52 Urine Nitrite Negative (Negative) 01/24/20 11:52 Ur Leukocyte Esterase Negative (Negative) 01/24/20 11:52 Blood Type A Positive 01/24/20 11:52 Antibody Screen NEGATIVE 01/24/20 11:52 Electrocardiogram Date: 05/28/19 SR at 77 bpm Chest X-Ray Date: 01/24/20 Findings: + NAD
[2020-01-24 12:40] LABS: Basophils # (auto) 0.02 K/uL (0-0.2); Basophils % (auto) 0.4 %; Eosinophils # (auto) 0.22 K/uL (0-0.5); Eosinophils % (auto) 4.7 %; Hematocrit (blood only) 39.4 % (42-52); Hemoglobin 13.6 g/dL (14.0-18.0); Immature Granulocytes # (auto) 0.01 K/uL (0.00-0.02); Immature Granulocytes % (auto) 0.2 %; Lymphocytes # (auto) 1.09 K/uL (1.2-3.4); Lymphocytes % (auto) 23.4 %; Mean Corpuscular Hemoglobin 30.5 pg (25-34); Mean Corpuscular Hgb Conc 34.5 g/dL (32-36); Mean Corpuscular Volume 88.3 fL (80-100); Mean Platelet Volume 9.4 fL (7.4-10.4); Monocytes # (auto) 0.36 K/uL (0.11-0.59); Monocytes % (auto) 7.7 %; Neutrophils # (auto) 2.95 K/uL (1.4-6.5); Neutrophils % (auto) 63.6 %; Platelet Count 199 K/uL (130-400); RDW Coefficient of Variation 12.9 % (11.5-14.5); RDW Standard Deviation 41.8 fL (36.4-46.3); Red Blood Count 4.46 M/uL (4.7-6.1); White Blood Count 4.65 K/uL (4.8-10.8)
[2020-01-24 12:41] LABS: Appearance Urine Clear (Clear); Bilirubin Urine Negative (Negative); Blood Urine Negative (Negative); Color Urine Yellow; Glucose Urine UA Negative (Negative); Ketones Urine Negative (Negative); Leukocyte Esterase Urine Negative (Negative); Nitrite Urine Negative (Negative); Protein Urine Negative (Negative); Urobilinogen Urine Negative (Negative); pH Urine 6.5 (4.5-7.5)
[2020-01-24 12:51] LABS: Albumin Level 3.4 gm/dl (3.4-5.0); BUN Creatinine Ratio 18.1 (10-20); Calcium 9.1 mg/dl (8.5-10.1); Creatinine Clr Calc Pharmacy 102.2 ml/min; Est GFR (African American) 103.6; Est GFR (Non-African American) 89.4
[2020-01-24 12:54] LABS: Partial Thromboplastin Ratio 0.9; Partial Thromboplastin Time 25.3 Seconds (21.0-31.0); Prothrombin Time 10.4 Seconds (9.0-12.0)
[2020-01-24 13:14] LABS: Estimated Average Glucose 114 mg/dl; Hemoglobin A1C 5.6 % (4.5-5.6)
--- NOTE | 2020-01-24 13:15 | XRay Report ---
XR chest Pre-admission PA/Lat HISTORY: Preop. COMPARISON: None. FINDINGS: The lungs are clear. Cardiac silhouette is normal in size. No pleural effusions. No pneumot horax. IMPRESSION: No acute process. ACT 112: Negative or not required by law. Electronically signed by: Jerrell Roy M.D. 01/24/2020 1:14 PM
--- NOTE | 2020-02-08 21:31 | History and Physical Report ---
DATE OF ADMISSION: 02/09/2020 CHIEF COMPLAINT: Chronic left knee pain. HISTORY OF PRESENT ILLNESS: This is a 69-year-old male patient of Dr. Amin'sylvia complaining of chronic left knee pain, longstanding, now progressively getting worse. The patient has failed conservative treatment including intraarticular injections, viscosupplementation, arthroscopic knee surgery and the use of anti-inflammatories. He has also used a brace. The patient has increased pain with weightbearing activities and his pain does interfere with his activities of daily living. The patient has been diagnosed with end-stage osteoarthritis per clinical and radiographic exams. The patient wished to proceed with a left total knee arthroplasty. PAST MEDICAL HISTORY: Heart murmur, osteoarthritis. SOCIAL HISTORY: Nonsmoker and nondrinker. PAST SURGICAL HISTORY: Right knee replacement, left knee arthroscopy. FAMILY HISTORY: Noncontributory. REVIEW OF SYSTEMS: Chronic left knee pain, otherwise denies any shortness of breath, chest pain, nausea, vomiting or other joint complaints. MEDICATIONS: Lipitor 10 mg daily, aspirin 81 mg 3 times a week and fish oil daily. ALLERGIES: No known drug allergies. PHYSICAL EXAMINATION: GENERAL: Well-developed, well-nourished 69-year-old male in no acute distress. He is alert and oriented x3 and pleasant. HEENT: Normocephalic, atraumatic. Extraocular motions are intact. Pupils are equal and reactive to light. HEART: Regular rate and rhythm, no murmurs. LUNGS: Clear. ABDOMEN: Soft, nontender, bowel sounds present. EXTREMITIES: Left knee reveals a varus deformity with medial joint line tenderness. Range of motion 0-125. Positive effusion, 5/5 strength. Neurologically and neurovascularly intact in the left lower extremity. DIAGNOSES: Left knee end-stage osteoarthritis, history of heart murmur -- benign, osteoarthritis, otherwise a healthy 69-year-old male. PLAN: The patient was advised of his diagnosis. Indications, risks, benefits, postop course have all been reviewed. The patient wished to proceed with a left total knee arthroplasty. Necessary consent forms, preoperative testing and clearances will be obtained.
[~2020-02-09 06:54] MED LIST changes: -ASPI81TA28 PO; -ATOR10TA88 PO; -CEFAZOLIN 2000 MG/60 ML D5W 60 ML IV SCH; +CEFAZOLIN 2000MG 2,000 MG/15 ML SYR IV SCH; -DEXAMETHASONE 4 MG TAB PO SCH; -HYDR-5688 PO; -LACTATED RINGER'S 1000ML 1,000 ML IV SCH; -LACTATED RINGER'S 1000ML 500 ML IV ONE; -LACTATED RINGER'S 1000ML IV SCH; +LIDOCAINE HCL 2% 2 ML VIAL/AMP(20MG/ML) INFIL ONE; +LR 500ML BOLUS, THEN 15ML/HR IV SCH; -METOCLOPRAMIDE HCL 10 MG TAB PO SCH; +METOCLOPRAMIDE HCL 10 MG TABLET PO SCH; +MIDAZOLAM HCL 1 MG/ML 2ML VIAL ONE; -OMEG10007 PO; +PROPOFOL IV EMULSION 10 MG/ML 20 ML VIAL IV ONE; +ROPIVACAINE 0.5% 5 MG/ML 30 ML VIAL ONE; +ROPIVACAINE 0.5% HCL/PF 150 MG, BUPIVACAINE 0.5% MPF 30 ML, EPINEPHrine 30MG/30ML (OR U... INSTIL SCH; -ROPIVACAINE 5MG/ML 30 ML 150 MG, BUPIVACAINE/EPINEPHR 0.5% MPF 30 ML, KETOROLAC TROMETH... INFIL SCH; -SERT-234 PO; +TRANEXAMIC ACID 1,000 MG **IV Intra-op IV SCH; +TRANEXAMIC ACID 1,000 MG **IV Pre-op IV SCH; +dexAMETHasone 4 MG TAB PO SCH; +fentaNYL citrate 100 MCG/2 ML VIAL ONE
--- OUTSIDE RECORDS SUMMARY | 2020-02-09 06:58 | External Medical Summary | Continuity of Care Document ---
:1950 Author Name Winifred Zurita Address Unavailable Unavailable , Care Team Providers Name Role Phone Will PALMER M.D., P. Unavailable [email or web address] PCP, [email or web address] Unavailable Unavailable Assessments Assessed Problems:Ulnar neuropathy of right upper extremityCarpal tunnel syndrome of right wrist Problems Carpal tunnel syndrome of right wrist (354.0) (G56.01) Ulnar neuropathy of right upper extremity (354.2) (G56.21) Allergies and Adverse Reactions Allergy history not documented Medications Medications not documented Procedures Procedures not documented Immunizations Immunizations not documented Plan of Treatment Planned Observations Planned Goals not documented Results No Known Results Results not documented Encounters Appointment; Javier Solis III, M.D. 19-Sep-2016 13:00 Encounter Diagnosis: Problem not documented
--- NOTE | 2020-02-09 07:24 | History & Physical Bridge Note ---
Date of Service February 09, 2020 History & Physical Bridge Note I have examined the patient, reviewed the History & Physical and in the interval since the performance of the History & Physical I have noted the following changes of clinical significance: no changes noted
[2020-02-09] MEDS ORDERED: BACITRACIN INJ 50,000 UNIT VIAL ONE (08:21)
[2020-02-09] MEDS ORDERED: ORTHO JOINT ANESTHETIC ONE (08:21)
[2020-02-09] MEDS ORDERED: KETAMINE HCL INJ 50 MG/ML 10 ML VIAL ONE (09:02)
[2020-02-09] MEDS ORDERED: PROPOFOL IV EMULSION 10 MG/ML 20 ML VIAL IV ONE ×3 (09:20→10:46)
[2020-02-09] MEDS ORDERED: ONDANSETRON INJ 2 MG/ML 2 ML VIAL IV PRN ×2 (09:28→12:30)
[2020-02-09] MEDS ORDERED: ePHEDrine sulfate 50 MG/ML AMP IV PRN (09:28)
[2020-02-09] MEDS ORDERED: fentaNYL citrate 100 MCG/2 ML VIAL IV PRN (09:28)
[2020-02-09] MEDS ORDERED: ATROPINE SULFATE 0.1 MG/ML 10ML SYR IV PRN (09:28)
[2020-02-09] MEDS ORDERED: PROMETHAZINE HCL 12.5 MG in SODIUM CHLORIDE 0.9% 50 ML IV PRN (09:28)
[2020-02-09] MEDS ORDERED: METOCLOPRAMIDE HCL INJ 5 MG/ML 2 ML VIAL IV PRN (09:28)
[2020-02-09] MEDS ORDERED: HYDROmorphone INJ 2 MG/ML SYR/VIAL IV PRN (09:28)
--- NOTE | 2020-02-09 10:41 | Operative Report ---
Post Operative Report Pre & Post Diagnosis Operation Date: 02/09/20 08:40 Pre-Op Diagnosis: Osteoarthritis, Left Knee Post-Op Diagnosis: Osteoarthritis, Left Knee I identified the patient and participated in the time-out.: Yes Procedure Operation Date: 02/09/20 08:40 Actual Procedures: Left Total Knee Arthroplasty, lateral release- Bj Amin MD Surgeon Bj Amin MD Guide Delegate Moise COLE Estimated Blood Loss 5 Findings Consistent with Post-Op Diagnosis Specimens Bone cuts Drains 2 Hemovac Anesthesia Type MAC Spinal Regional Complications none Disposition Accompanied Patient To Recovery: No Disposition: Recovery Room Indications 69-year-old male chronic progressive osteoarthritis left knee. History of prior knee arthroscopy. Patient with a varus knee [id number] medial compartment. Had successful Sanchez & Nephew journey knee replacement on right knee. Description of Procedure The patient was taken to the operating room and anesthetized under spinal MAC regional. Patient was placed supine on the the operating table. A pneumatic tourniquet was placed about the left upper thigh. The knee exam demonstrated good range of motion no instability varus knee. The involved leg was elevated exsanguinated with Esmarch bandage and the pneumatic tourniquet was raised to 300 millimeters mercury. A longitudinal incision was made across the anterior knee. Skin flaps were elevated. An incision was made into the medial retinaculum and extended up into the mid third of the quadriceps tendon and extended down to the tibial tubercle. Intra-articular findings demonstrated tricompartmental osteoarthritis with grade 4 anteromedial osteoarthritis [id number] medial compartment. The knee was exposed by excising cruciate ligaments and menisci. The infrapatellar fat pad was resected. The fat pad over the anterior femur at the upper aspect of the articular surface was rese cted for placement of the component in that area. A subperiosteal peel lateral release was performed around the patella. The Sanchez & Nephew journey 2.0 posterior stabilized total knee arthroplasty s ystem was utilized for the procedure. The drill hole was made into the intramedullary canal and the ahsan was placed in the distal femoral cut was adjusted to resect a standard distal femoral cut at 5 degree valgus. The sizing guide was placed and knee was sized for size 7. The size 7, 5 in 1 cutting block was placed. The anterior posterior and chamfer cuts were made. The knee was extended and a free hand cut technique was performed to the patella. The patella with was measured and the width was reproduced using a 38 symmetrical patella component. 3 drill holes are made for the patella component pegs. The tibia was then subluxed. The external tibial cutting guide was adjusted for posterior slope making a perpendicular cut to the long axis of the tibia was pinned in position and the proximal tibial cut was made with the oscillating saw. The size 7 tibial trial was externally rotated in line with the tibial tubercle and pinned in position. The punch for the stem was used. The femoral trial was inserted and centered the notch cutting devices were used and the collet was placed. Tibial trials were used for the insert. The size 13 trial gave balanced ligaments through full range of motion. A medial and posterior medial release were required to get symmetrical extension flexion gaps. Patella tracking was assessed with range of motion. The patella tracked with some slight liftoff so I did do a lateral release leaving the synovium intact. Patella tracks centrally.. The trials were removed. The Orthomix anesthetic cocktail was injected per protocol. The cut bone surfaces and soft tissue were copiously irrigated with antibiotic solution with bacitracin. The final components were cemented with Simplex cement. The final components were Sanchez & Nephew journey 2.0 left posterior stabilized 7 femoral component, 7 tibial tray, 13 polyethylene insert posterior stabilized, 38 symmetrical patella. While the cement cured the Betadine soak was used per protocol. When the cement cured the knee was copiously irrigated with pulsatile lavage antibiotic solution with bacitracin. 2 drains were brought out laterally connected to Hemovac. The quadriceps tendon and medial retinaculum were closed with interrupted [id number] #1 Vicryl sutures. The knee was taken through full range of motion and repair was secure. The subcutaneous tissues were closed with 2-0 Vicryl sutures. The skin was closed with tanisha. A brigido and Acticoat dressing was applied. The tourniquet was let down and the patient had good capillary refill to the extremity. The patient tolerated the procedure well. My physician advertising assistant manager Moise Keyes, assisted in the procedure including prepping draping leg positioning soft tissue retraction instrument management and assisted in the closure ,dressings application and will participate in postoperative care the patient. I attest to the content of the Intraoperative Record and any orders documented therein. Any exceptions are noted below.
--- NOTE | 2020-02-09 11:47 | XRay Report ---
XR knee LT 1 or 2V routine CLINICAL HISTORY: Postoperative evaluation. COMPARISON: None FINDINGS: Alignment of the total left knee arthroplasty is anatomic. There is no periprosthetic frac ture or unexpected radiopaque foreign body. There are drains and skin tanisha. IMPRESSION: Expected findings following total left knee arthroplasty. ACT 112: Negative or not required by law. Electronically signed by: Сергей Ortega M.D. 02/09/2020 11:45 AM
[2020-02-09] MEDS ORDERED: bisacodyL 10 MG SUPP PR PRN (12:30)
[2020-02-09] MEDS ORDERED: HYDROmorphone INJ 0.5 MG/0.5 ML SYR IV PRN (12:30)
[2020-02-09] MEDS ORDERED: MAGNESIUM HYDROXIDE SUSP 30 ML UDC PO PRN (12:30)
[2020-02-09] MEDS ORDERED: NALOXONE HCL 0.4 MG/1 ML VIAL/CARP IV PRN (12:30)
[2020-02-09] MEDS: SODIUM CHLORIDE 0.9% 1000ML 1,000 ML IV SCH ×2 (13:28→23:47)
[2020-02-09] MEDS: ACETAMINOPHEN 500 MG TAB PO SCH ×2 (13:28→21:02)
--- NOTE | 2020-02-09 13:42 | Hospitalist Consultation ---
Date of Consultation February 09, 2020 Assessment & Plan (1) S/P total knee arthroplasty: POD #0 left total knee arthroplasty X-ray of left knee status post procedure as expected Further management per orthopedics (2) Osteoarthritis (arthritis due to wear and tear of joints): Chronic use of aspirin PDMP reviewed * Only 1 prescription for Vicodin ordered in June 2019 * Currently not on any outpatient narcotics or opiates for pain control Further pain management per orthopedics (3) Anxiety: Reported in history but patient denies Supportive care Patient does not appear to be on any benzodiazepines or anxiolytics at home PDMP reviewed -no benzodiazepines prescribed (4) Hypertension: Currently not on any antihypertensives at home Fish oil daily at home Blood pressure currently 121/69 Patient denies prior history of hypertension. States that his systolic pressure has only been in the low 140s 1 or 2 times No treatment ever as an outpatient (5) Hyperlipidemia: Continue atorvastatin 10 mg p.o. HS (6) COPD (chronic obstructive pulmonary disease): Has not had any inhalers or bronchodilators at home We will order as needed duo nebs Continue to manage with outpatient PCP (7) AAA (abdominal aortic aneurysm): Last ultrasound measured 4.7 cm No appreciation of bruits or palpitation with abdominal exam (8) DVT prophylaxis: Chemical prophylaxis per orthopedics HECTOR hose in place bilaterally SCDs in place bilaterally Thank you for including us in the care of this patient. Anticipated discharge tomorrow. Please refer to Dr. De La Cruz's addendum for further recommendations. Supervising Physician Co-Signing Physician Notes During my face to face encounter with the patient, I obtained a history and obtained physical exam. I agreed with plan by KRISTAN Mix. In regards to his hyperlipidemia, will resume home meds. Due to anticipated discharge, will sign off case. Please call for any further questions. History of Present Illness Attending Physician: Bj Amin MD History of Present Illness Ending: Dr. De La Cruz This is a 69-year-old male with history of Hypertension, COPD, chronic osteoarthritis, AAA, anxiety, and hyperlipidemia who underwent complete left knee arthroplasty with Dr. Amin today. Patient states that he has had ongoing pain in his left knee. He had a right total knee arthroplasty years ago. At that time he had significant pain for about 6 months. At this point he has no further pain in that leg. Patient denies any recent illness. He has no recent sick contacts. He has no contact or reason to suspect COVID. He has no acute complaints. Patient lives at home with his and 1 dog. He has no recent travel. Patient does have a history of tobacco abuse and states that he quit smoking about 6 months ago. When he did smoke it was maybe 1 to 2 cigarettes/month. Patient has no history of ethanol abuse. Patient has no history of substance abuse. Allergies Allergy/AdvReac Type Severity Reaction Status Date / Time No Known Allergies Allergy Verified 02/09/20 07:25 Home Medications Home Medications Medication Instructions Recorded Confirmed Type aspirin 81 mg PO 3XWK 01/24/20 02/09/20 History atorvastatin 10 mg PO HS 01/24/20 02/09/20 History docosahexaenoic acid-epa [Fish Oil 1 cap PO QAM 01/24/20 02/09/20 History (with [facility])] Patient History Medical History (Updated 02/09/20 @ 14:04 by Blaise Mix PA-C) AAA (abdominal aortic aneurysm) 4.7cm in 01/2019 per recent PCP note Anxiety Cardiac murmur CHRONIC- 06/2019 ECHO DONE AT [facility] COPD (chronic obstructive pulmonary disease) Controlled per PCP - baseline MOSES Hyperlipidemia Hypertension Osteoarthritis (arthritis due to wear and tear of joints) Surgical History (Updated 02/09/20 @ 14:02 by Blaise Mix PA-C) History of right knee joint replacement Hx of arthroscopic knee surgery Hx of colonoscopy Social History Smoking Status: Former smoker Smoking End Date: 2018; Second Hand Exposure: No; Do You Dip or Chew Tobacco: Yes (OCAS/ ADVISED); Tobacco Cessation Education Requested by Patient: No Hx Alcohol Use: No Hx Substance Use: No Preferred Language: Azeri Communication Ability: Effective Academic Coordinator Required: No Beliefs That Will Affect Care: None Current Living Situation: Spouse Other Information That Helps Us Care for You: No Feels Safe at Home: Yes Safety Concerns: Feels Safe At This Time Review of Systems Review of Systems: All systems reviewed & are unremarkable except as noted in HPI & below Physical Exam Physical Exam: GENERAL : No acute distress. Pleasant and talkative EYES: No icterus, gaze conjugate. Pupils equal round and reactive to light NOSE: No evidence of epistaxis. MOUTH: No lesions or candidiasis. Mucosa moist NECK: Supple. No stridor or appreciation of carotid bruits LUNGS: CTA B/L, no wheezes, rales or rhonchi. Good inspiratory effort HEART: Regular, rate controlled. No evidence of ectopy ABDOMEN: Soft, NT, ND, BS Present EXTREMITIES: No LE edema, pedal pulses intact and equal bilaterally. Left leg is wrapped to the toes. Able to fire quadricep muscle NEURO: A&OX3. Cranial nerves II through XII grossly intact without focal deficit Results & Data Results & Data ([facility]) Vital Signs (Past 12 Hours) Vital Signs Temp Pulse Pulse Pulse Resp BP BP 02/09/20 13:24 36.5 C 62 18 121/69 02/09/20 12:51 36.3 C L 70 17 129/78 02/09/20 12:25 36.4 C L 58 L 16 114/70 02/09/20 12:00 67 12 119/64 02/09/20 11:50 36.4 C L 59 L 15 118/70 02/09/20 11:40 57 L 15 115/64 02/09/20 11:30 58 L 19 116/66 02/09/20 11:20 60 18 117/71 02/09/20 11:13 36.6 C 71 17 103/67 02/09/20 07:37 36.8 C 56 L 20 119/71 Pulse Ox 02/09/20 13:24 93 02/09/20 12:51 94 02/09/20 12:25 94 02/09/20 12:00 94 02/09/20 11:50 96 02/09/20 11:40 95 02/09/20 11:30 94 02/09/20 11:20 94 02/09/20 11:13 98 02/09/20 07:37 98 Laboratory Results 01/24/20 11:52 01/24/20 11:52 Diagnostic Findings XR knee LT 1 or 2V routine CLINICAL HISTORY: Postoperative evaluation. COMPARISON: None FINDINGS: Alignment of the total left knee arthroplasty is anatomic. There is no periprosthetic fracture or unexpected radiopaque foreign body. There are drains and skin tanisha. IMPRESSION: Expected findings following total left knee arthroplasty. Electronically signed by: Сергей Ortega M.D. 02/09/2020 11:45 AM Echocardiogram 08/16/2019 1. Mild cLVH, normal LV cavity size, preserved LV systolic function, EF equals 55 to 60% 2. Normal RV size and systolic function 3. Trileaflet mildly degenerated aortic valve, mild AI, minimal gradient obtained across the ascending aorta is measured at 4.7 cm distal to the sinotubular junction 4. Eccentric color flow around the aortic valve is likely be just a mild AI, although flow through a small intramyocardial portion of the vessel cannot be excluded. This appears similar to what was seen on the previous study PG Care Time/CCT Total # of Minutes Spent Total Time Spent with Patient: Total time spent is greater than 50% in coordination of care (as documented) at patient's floor/unit and/or counseling patient: 30 minutes Coding Level of Care Code 85171 Inpt Consult Level 3 Diagnoses S/P total knee arthroplasty Z96.659 Osteoarthritis (arthritis due to wear and tear of joints) M19.90 Anxiety F41.9 Hypertension I10 Hyperlipidemia E78.5 COPD (chronic obstructive pulmonary disease) J44.9 AAA (abdominal aortic aneurysm) I71.4 DVT prophylaxis Z29.9 Time Spent (min) 30
--- NOTE | 2020-02-09 14:08 | Anesthesiology Progress Note ---
Date of Service February 09, 2020 Anesthesia Post Procedure Vital Signs Vital Signs: Temp Pulse Pulse Pulse Resp BP BP 02/09/20 13:24 36.5 C 62 18 121/69 02/09/20 12:51 36.3 C L 70 17 129/78 02/09/20 12:25 36.4 C L 58 L 16 114/70 02/09/20 12:00 67 12 119/64 02/09/20 11:50 36.4 C L 59 L 15 118/70 02/09/20 11:40 57 L 15 115/64 02/09/20 11:30 58 L 19 116/66 02/09/20 11:20 60 18 117/71 02/09/20 11:13 36.6 C 71 17 103/67 02/09/20 07:37 36.8 C 56 L 20 119/71 Pulse Ox 02/09/20 13:24 93 02/09/20 12:51 94 02/09/20 12:25 94 02/09/20 12:00 94 02/09/20 11:50 96 02/09/20 11:40 95 02/09/20 11:30 94 02/09/20 11:20 94 02/09/20 11:13 98 02/09/20 07:37 98 Transfer of Care Handoff Completed per policy Notes Mental Status: alert / awake / arousable and participated in evaluation Patient Amnestic to Procedure: Yes Nausea / Vomiting: adequately controlled Pain: adequately controlled Airway Patency, RR, SpO2: stable & adequate BP & HR: stable & adequate Hydration State: stable & adequate Neuraxial Anesthesia: was administered and sensory block is resolving Anesthetic Complications: no major complications apparent
[2020-02-09] MEDS: CEFAZOLIN 2000MG 2,000 MG/15 ML SYR IV SCH ×2 (15:56→23:54)
[2020-02-09] MEDS: OXYCODONE HCL IR 5 MG TAB (IMMEDIATE RELEASE) PO PRN ×2 (16:01→21:04)
[2020-02-09] MEDS: FERROUS GLUCONATE 324 MG TAB PO SCH (17:29)
[2020-02-09] MEDS ORDERED: SENNA 8.6 MG TAB PO SCH (21:00)
[2020-02-09] MEDS ORDERED: ATORVASTATIN 10 MG TAB PO SCH (21:00)
[2020-02-09] MEDS: DOCUSATE SODIUM 100 MG CAP PO SCH (21:02)
[2020-02-09] MEDS: ASPIRIN 81 MG ECTAB PO SCH (21:02)
[2020-02-10] MEDS: OXYCODONE HCL IR 5 MG TAB (IMMEDIATE RELEASE) PO PRN ×3 (01:11→10:54)
[2020-02-10] MEDS: ACETAMINOPHEN 500 MG TAB PO SCH ×2 (06:02→13:41)
[2020-02-10 06:13] LABS: Hemoglobin 10.7 g/dL (14.0-18.0); Mean Corpuscular Hemoglobin 30.7 pg (25-34); Mean Corpuscular Hgb Conc 34.5 g/dL (32-36); Mean Corpuscular Volume 88.8 fL (80-100); Mean Platelet Volume 9.5 fL (7.4-10.4); Platelet Count 215 K/uL (130-400); RDW Coefficient of Variation 12.8 % (11.5-14.5); RDW Standard Deviation 41.6 fL (36.4-46.3); Red Blood Count 3.49 M/uL (4.7-6.1); White Blood Count 12.09 K/uL (4.8-10.8)
[2020-02-10 06:54] LABS: BUN Creatinine Ratio 21.1 (10-20); Calcium 8.2 mg/dl (8.5-10.1); Creatinine Clr Calc Pharmacy 99.1 ml/min; Est GFR (African American) 102.6; Est GFR (Non-African American) 88.5; Potassium 4.3 mmol/L (3.5-5.1)
[2020-02-10] MEDS: FERROUS GLUCONATE 324 MG TAB PO SCH (07:31)
[2020-02-10] MEDS: ASPIRIN 81 MG ECTAB PO SCH (07:32)
[2020-02-10] MEDS: DOCUSATE SODIUM 100 MG CAP PO SCH (07:32)
--- NOTE | 2020-02-10 07:47 | Orthopedic Progress Note ---
Date of Service February 10, 2020 Assessment & Plan (1) Osteoarthritis of left knee: POD 1 s/p Left TKA Acute Blood Loss Anemia - Asymptomatic. Mild Leukocytosis - likely due to surgical stress/preop steroids PT / OT protocols. WBAT. DVT prophylaxis - ASA BID, SCD's Pain management as written DC planning - Home Health services upon dc. Admission and Anticipated Discharge Date Admission Date: February 09, 2020 Subjective POD 1 Pt sitting in chair at bedside. No complaints this AM. Denies SOB,CP,LH. Pain controlled. Physical Exam Physical Exam: Dressings are C/D/I. Calves are soft,NT. NV intact. Toes mobile. Good DF/PF. HV output 450cc from previous shift. Results & Data ([facility]) Vital Signs (Past 12 Hours) Vital Signs Temp Pulse Resp BP Pulse Ox 02/10/20 07:10 36.5 C 52 L 16 116/67 98 02/10/20 03:37 36.7 C 54 L 18 107/62 96 02/09/20 23:05 36.6 C 59 L 18 105/66 95 02/09/20 21:38 36.5 C 69 16 101/65 93 Laboratory Results Laboratory Results WBC 12.09 K/uL (4.8-10.8) H 02/10/20 05:08 RBC 3.49 M/uL (4.7-6.1) L 02/10/20 05:08 Hgb 10.7 g/dL (14.0-18.0) L 02/10/20 05:08 Hct 31.0 % (42-52) L 02/10/20 05:08 MCV 88.8 fL (80-100) 02/10/20 05:08 MCH 30.7 pg (25-34) 02/10/20 05:08 MCHC 34.5 g/dL (32-36) 02/10/20 05:08 RDW Std Deviation 41.6 fL (36.4-46.3) 02/10/20 05:08 RDW Coeff of Jesus 12.8 % (11.5-14.5) 02/10/20 05:08 Plt Count 215 K/uL (130-400) 02/10/20 05:08 MPV 9.5 fL (7.4-10.4) 02/10/20 05:08 Immature Gran % (Auto) 0.2 % 01/24/20 11:52 Neut % (Auto) 63.6 % 01/24/20 11:52 Lymph % (Auto) 23.4 % 01/24/20 11:52 [place] % (Auto) 7.7 % 01/24/20 11:52 Eos % (Auto) 4.7 % 01/24/20 11:52 Baso % (Auto) 0.4 % 01/24/20 11:52 Neut # (Auto) 2.95 K/uL (1.4-6.5) 01/24/20 11:52 Lymph # (Auto) 1.09 K/uL (1.2-3.4) L 01/24/20 11:52 [place] # (Auto) 0.36 K/uL (0.11-0.59) 01/24/20 11:52 Eos # (Auto) 0.22 K/uL (0-0.5) 01/24/20 11:52 Baso # (Auto) 0.02 K/uL (0-0.2) 01/24/20 11:52 Immature Gran # (Auto) 0.01 K/uL (0.00-0.02) 01/24/20 11:52 PT 10.4 Seconds (9.0-12.0) 01/24/20 11:52 INR 1.0 (0.9-1.1) 01/24/20 11:52 APTT 25.3 Seconds (21.0-31.0) 01/24/20 11:52 PTT Ratio 0.9 01/24/20 11:52 Sodium 140 mmol/L (136-145) 02/10/20 05:08 Potassium 4.3 mmol/L (3.5-5.1) 02/10/20 05:08 Chloride 110 mmol/L (98-107) H 02/10/20 05:08 Carbon Dioxide 22 mmol/L (21-32) 02/10/20 05:08 Anion Gap 8.0 (3-11) 02/10/20 05:08 BUN 17 mg/dl (7-18) 02/10/20 05:08 Creatinine 0.83 mg/dl (0.6-1.4) 02/10/20 05:08 Est Cr Clr Drug Dosing 99.1 ml/min 02/10/20 05:08 Est GFR ( Amer) 102.6 02/10/20 05:08 Est GFR (Non-Af Amer) 88.5 02/10/20 05:08 BUN/Creatinine Ratio 21.1 (10-20) H 02/10/20 05:08 Glucose 106 mg/dl (70-99) H 02/10/20 05:08 POC Glucose 130 mg/dl (70-99) H 02/09/20 11:17 Estimat Average Glucose 114 mg/dl 01/24/20 11:52 Hemoglobin A1c 5.6 % (4.5-5.6) 01/24/20 11:52 Calcium 8.2 mg/dl (8.5-10.1) L 02/10/20 05:08 Albumin 3.4 gm/dl (3.4-5.0) 01/24/20 11:52 Urine Color Yellow 01/24/20 11:52 Urine Appearance Clear (Clear) 01/24/20 11:52 Urine pH 6.5 (4.5-7.5) 01/24/20 11:52 Ur Specific [place] 1.010 (1.000-1.030) 01/24/20 11:52 Urine Protein Negative (Negative) 01/24/20 11:52 Urine Glucose (UA) Negative (Negative) 01/24/20 11:52 Urine Ketones Negative (Negative) 01/24/20 11:52 Urine Blood Negative (Negative) 01/24/20 11:52 Urine Nitrite Negative (Negative) 01/24/20 11:52 Urine Bilirubin Negative (Negative) 01/24/20 11:52 Urine Urobilinogen Negative (Negative) 01/24/20 11:52 Ur Leukocyte Esterase Negative (Negative) 01/24/20 11:52 Hepatitis C Ab Screen Neg (Neg) 02/10/20 05:08 Blood Type A Positive 01/24/20 11:52 Antibody Screen NEGATIVE 01/24/20 11:52
[2020-02-10] MEDS ORDERED: MULTIVITAMIN TAB PO SCH (09:00)
--- NOTE | 2020-02-14 15:50 | Discharge Summary ---
Date of Service February 14, 2020 Admission HPI Per Admitting Provider HISTORY OF PRESENT ILLNESS: This is a 69-year-old male patient of Dr. Amin's complaining of chronic left knee pain, longstanding, now progressively getting worse. The patient has failed conservative treatment including intraarticular injections, viscosupplementation, arthroscopic knee surgery and the use of anti-inflammatories. He has also used a brace. The patient has increased pain with weightbearing activities and his pain does interfere with his activities of daily living. The patient has been diagnosed with end-stage osteoarthritis per clinical and radiographic exams. The patient wished to proceed with a left total knee arthroplasty. Admission Exam Per Admitting Provider PHYSICAL EXAMINATION: GENERAL: Well-developed, well-nourished 69-year-old male in no acute distress. He is alert and oriented x3 and pleasant. HEENT: Normocephalic, atraumatic. Extraocular motions are intact. Pupils are equal and reactive to light. HEART: Regular rate and rhythm, no murmurs. LUNGS: Clear. ABDOMEN: Soft, nontender, bowel sounds present. EXTREMITIES: Left knee reveals a varus deformity with medial joint line tenderness. Range of motion 0-125. Positive effusion, 5/5 strength. Neurologically and neurovascularly intact in the left lower extremity. Principal Diagnosis Left knee DJD Discharge Data Allergies Allergy/AdvReac Type Severity Reaction Status Date / Time No Known Allergies Allergy Verified 02/09/20 07:25 Consultations 02/04/20 12:57 Consult Hospitalist Routine 02/09/20 11:21 Consult Case Management - Discharge Planning Routine Procedures Performed Operation Date: 02/09/20 08:40 Actual Procedures p Left Total Knee Arthroplasty(Left) - Bj Amin MD Ordered Studies 02/09/20 05:00 US - OR guided needle placemen Routine Hospital Course (1) Osteoarthritis of left knee: Patient was admitted on the above-noted date and had the above-noted surgery performed of which they tolerated well. Postoperatively, consultation was placed for medical management for the [facility] physician group hospitalist service. On the first postoperative day, the patient was sitting at the bedside in their chair. They had no complaints. Denies shortness of breath, chest pain, lightheadedness. Pain was controlled. Dressings were clean, dry, and intact. Calves were soft nontender. Neurovascular was intact. Toes are mobile. Patient had good dorsiflexion and plantarflexion of the left foot. Hemovac output was 450 cc from the previous shift. Vital signs are sta ble and he was afebrile. Hemoglobin was 10.7. He was started on his PT and OT protocols and continued on DVT prophylaxis pain management. He progressed well with his physical therapy and was remaining stable and it was felt he could be discharged home with home health services. Total Time Total Time Spent Total Time Spent (In Minutes): 5 Discharge Plan Discharge Items Patient Disposition: Home - Home Health Services Reason For Visit: Osteoarthritis, Left Knee Discharge Diagnosis: Osteoarthritis Left Knee Activity: Per Instructions section Weightbearing: Left weightbearing Weightbearing Comment: as tolerated with walker Non-emergency contact: Surgeon Call non-emergency contact if: your pain is not controlled, your temperature is above 101.5, your wound has increased redness and your wound has increased drainage Follow-up/Referrals: Christiano Schreiber MD [Primary Care Provider] - Diet: Regular Addtl Attending Provider Instructions: ACTIVITY RECOMMENDATIONS: SELF CARE INSTRUCTIONS AFTER TOTAL KNEE REPLACEMENT A. You may need to continue a physical therapy program after discharge from the hospital. There are several options available to you. Your doctor will assist you in selecting the best one for you. 1. An out-patient facility 2 to 3 times a week for therapy or home therapy. 2. Continue working on all exercises taught to you in the hospital. Your goals should be to increase bending of your knee to 90 degrees and beyond and to fully straighten your knee. B. You may progress at your own pace from walking with a walker or crutches to a cane; then to no assistive devices. C. Make walking a part of your daily routine. Be up as much as comfortable with rest periods throughout the day. Rest with leg elevation is very important. Use the ice wrap frequently for the first 3-4 weeks. D. There are no restrictions on activities. You may ride in a car, shop, participate in puttier and all social activities. E. Wear the long elastic stockings (HECTOR hose) 20 hours a day for 2 weeks after surgery. They can be removed several times a day for laundering and for a bath. F. You may shower, no tub baths until cleared by your doctor. SPECIAL CARE INSTRUCTIONS: VERY IMPORTANT TO READ AND REVIEW A. There are a few signs you need to watch for after you are home. Call [facility] if you notice any of the followin. Increased severe knee pain. Some pain is expected especially when you exercise. 2. Increased swelling in your leg or knee; pain or swelling of the calf muscle in either lower leg. 3. Any fluid drainage from the incision. 4. Shortness of breath or chest pain. B. Please call [facility] at if you have any concerns or questions about your operation or recovery. The doctor or his nurse will return your call promptly. C. You must take antibiotics before dental work, bladder, bowel or other surgery. Your doctor will provide you with a permanent care to carry describing this precaution. IMPORTANT: * REMEMBER TO TAKE ASPIRIN, 81 MG, TWICE DAILY FOR 4 WEEKS UNLESS OTHERWISE DIRECTED. THIS IS YOUR BLOOD THINNER.. * CALL IF INCREASED PAIN, REDNESS, DRAINAGE OR FEVER GREATER THAT 101. * WEAR HECTOR HOSE 20 HOURS PER DAY FOR 2 WEEKS. * TALIA Dressing - This is a large suction dressing covering your incision. This will help pull any excess drainage from the wound and allow your incision to heal properly. You may shower with this if you can keep the unit outside of the shower. If any bleeding or leakage is noted please call your doctor's office. This will remain on your incision for 7 days and then should be removed. This can be done yourself or by the home nursing staff if applicable. The entire unit is disposable once removed. Once removed, keep incision clean and dry. If redness or drainage is noted, please call your surgeon. . FOLLOW UP VISIT: If appointment is not already scheduled: Please call [facility] to make a follow-up appointment for 2 weeks after your surgery at . Stand-Alone Forms: My [employer], Smoking Cessation Medications and DC Order Prescriptions: New aspirin 81 mg Tablet,Delayed Release (Dr/Ec) 81 mg PO BID 30 Days Qty: 60 RF: 0 acetaminophen 500 mg Tablet 1,000 mg PO Q8 14 Days Qty: 84 RF: 0 polyethylene glycol 3350 [Miralax] 17 gram powder in packet 17 g PO DAILY PRN (Reason: constipation) Qty: 5 RF: 0 oxycodone 5 mg Tablet 5 mg PO Q4H MDD 6 PRN (Reason: pain) Qty: 30 RF: 0 Continued atorvastatin 10 mg Tablet 10 mg PO HS RF: 0 docosahexaenoic acid-epa Capsule 1 cap PO QAM RF: 0 Discontinued aspirin 81 mg Tablet,Delayed Release (Dr/Ec) 81 mg PO 3XWK RF: 0 Discharge Orders: Discharge Order (Routine); Ordered 02/10/20 Ordered By: Moise Keyes Admission Data Admit Date/Time: 02/09/20 11:21 Attending Provider: Bj Amin Admit Provider: jB Amin Primary Care Provider: Christiano Schreiber Other Providers: Kevyn Oliver,Home Health Other Interventions: Discharge Summary Assessment (RN) Last Done: 02/10/20 13:10
== END 2020-02-10 14:30 | disposition home or self-care (01) ==
LOC: ASU 06:54 → 3N 06:54